=== PATIENT | male | born 1965 | race Caucasian/White ===

== ENCOUNTER → 2018-06-07 09:28 | Outpatient (CLI) | payer BC, SELFPAY ==
[2018-06-07 11:18] LABS: Cholesterol 162 mg/dL (200); High Density Lipoprotein 43 mg/dL; Triglycerides 75 mg/dL; Very Low Density Lipoprotein 15 mg/dL (5-40)
== END ==
PROVIDERS: Family Provider Family Medicine; PCP Family Medicine; Referring Provider Family Medicine; Visit Provider Family Medicine
DX: E78.5 Hyperlipidemia, unspecified (principal)
CPT/HCPCS: 36415; 80061

== ENCOUNTER → 2018-12-18 08:37 | Outpatient (CLI) | payer BC, SELFPAY ==
[2017-11-12 16:06] VITALS: BMI 41.7
--- NOTE | 2018-12-18 08:38 | RAD_ITS ---
STUDY: X-RAY - LEFT SHOULDER REASON FOR EXAM: Pain. TECHNIQUE: 4 view(s) of the shoulder. COMPARISON: None. FINDINGS: Normal glenohumeral articulation. There is mild acromioclavicular arthrosis. Normal acromion. Normal humeral head and visualized proximal humerus. The soft tissue structures are unremarkable. Normal visualized pulmonary apex. RAD/Shoulder min 2 Views IMPRESSION: Mild acromioclavicular arthrosis. Electronically Signed: Edison Butler MD at 10:37 EDT Tel , Service support ,
--- NOTE | 2018-12-18 09:57 | RAD_ITS ---
STUDY: X-RAY - LEFT CLAVICLE REASON FOR EXAM: Pain on the left, deformity. TECHNIQUE: A single view of the clavicle. COMPARISON: None. FINDINGS: The serendipity view demonstrates joint space narrowing of the left sternoclavicular joint in comparison to the the right. The medial clavicles are in the same horizontal plane and therefore no demonstrated dislocation of the sternoclavicular joints. There is no demonstrated fracture or osseous destruction of the left clavicle. RAD/Clavicle IMPRESSION: Arthrosis of the left sternoclavicular joint. Electronically Signed: Edison Butler MD at 9:50 EDT Tel , Service support ,
== END ==
PROVIDERS: Family Provider Family Medicine; PCP Family Medicine; Referring Provider Orthopaedic Surgery; Visit Provider Orthopaedic Surgery
DX: M25.512 Pain in left shoulder (principal)
CPT/HCPCS: 73000; 73030

== ENCOUNTER → 2019-02-14 09:44 | Outpatient (CLI) | payer BC, SELFPAY ==
[2017-11-12 16:06] VITALS: BMI 41.7
[2019-02-14 10:41] LABS: PSA,Total - Annual Screen 1.24 ng/mL (0.00-4.00)
[2019-02-16 09:20] LABS: Rubella IgG 174.5 IU/mL
[2019-02-17 12:26] LABS: V-Zoster IgG (Immunity) < 135 index (Immune >165)
== END ==
PROVIDERS: Family Provider Family Medicine; PCP Family Medicine; Referring Provider Family Medicine; Visit Provider Family Medicine
DX: Z00.00 Encounter for general adult medical examination without abnormal findings (principal); Z12.5 Encounter for screening for malignant neoplasm of prostate
CPT/HCPCS: 36415; 84153; 86762; 86765; 86787; G0103

== ENCOUNTER → 2019-03-07 10:07 | Outpatient (CLI) | payer BC, SELFPAY ==
[2019-02-27 13:09] VITALS: BMI 45.1
[2019-03-07 11:28] LABS: AST(SGOT) 10 U/L (15-37); Alanine Aminotransfer ALT/SGPT 25 U/L (16-61); Albumin, Serum 3.8 g/dL (3.2-5.0); Alkaline Phosphatase 71 U/L (45-117); Bilirubin, Direct 0.11 mg/dL (0.00-0.30); Cholesterol 153 mg/dL (200); Globulin 3.7 g/dL (2.2-4.2); High Density Lipoprotein 40 mg/dL; Protein, Total 7.5 g/dL (6.4-8.2); Triglycerides 89 mg/dL; Very Low Density Lipoprotein 18 mg/dL (5-40)
== END ==
PROVIDERS: Family Provider Family Medicine; PCP Family Medicine; Referring Provider Internal Medicine Cardiovascular Disease; Visit Provider Internal Medicine Cardiovascular Disease
DX: E78.5 Hyperlipidemia, unspecified (principal)
CPT/HCPCS: 36415; 80061; 80076

== ENCOUNTER → 2019-03-11 14:51 | Outpatient (CLI) | payer BC, SELFPAY ==
[2019-02-27 13:09] VITALS: BMI 45.1
--- NOTE | 2019-03-11 14:53 | ECHOD_ITS ---
Reason For Study: CAD/ASHD Procedure This was a 2D Doppler, Color Flow transthoracic echocardiogram. Exam performed in department. Left Ventricle Normal size and thickness. The estimated ejection fraction is 65 %. Stage 1 diastolic dysfunction. No regional wall motion abnormalities noted. Right Ventricle Normal size and thickness. Normal systolic function. Atria Normal left atrium. Normal right atrium. Normal atrial septum. Mitral Valve The mitral valve is structurally normal. No prolapse or stenosis seen. Trivial mitral valve insufficiency. Tricuspid Valve Normal tricuspid valve. Trivial tricuspid valve insufficiency. Right ventricular systolic pressure estimated to be 26 mmHg. Aortic Valve Normal aortic valve. Trisinus/trileaflet aortic valve. Pulmonic Valve Normal pulmonic valve. Great Vessels Normal aortic root. Normal arch. Normal inferior vena cava. Inferior vena cava collapse with sniff. Pericardium/Pleural No pericardial effusion. MMode/2D Measurements & Calculations LVIDd: 4.5 cm IVSd: 1.3 cm Ao root diam: 3.3 cm LVIDs: 2.9 cm LVPWd: 1.2 cm RVDd: 4.5 cm FS: 35.7 % LAV(MOD-bp): 56.8 ml LVAd ap4: 35.3 cm2 SV(MOD-sp4): 66.2 ml LAV(MOD-bp) Indexed: 21.8 ml/m2 EDV(MOD-sp4): 108.1 ml LAV(MOD-sp2): 51.4 ml EDV(sp4-el): 114.1 ml LAV(MOD-sp4): 55.9 ml LVAs ap4: 18.6 cm2 ESV(MOD-sp4): 41.9 ml ESV(sp4-el): 38.8 ml EF(MOD-sp4): 61.2 % EF(sp4-el): 66.0 % SV(sp4-el): 75.4 ml LA A4 area: 20.7 cm2 LA dimension(2D): 4.9 cm RA A4 area: 13.9 cm2 Doppler Measurements & Calculations MV E max rosalino: 57.7 cm/sec Lat Peak E' Rosalino: 15.4 cm/sec Med Peak E' Rosalino: 7.2 cm/sec MV A max rosalino: 69.2 cm/sec E/E' lat: 3.7 E/E' med: 8.1 MV E/A: 0.83 Ao V2 max: 146.9 cm/sec LV V1 max: 112.7 cm/sec PA V2 max: 91.3 cm/sec Ao max P.6 mmHg LV V1 max P.1 mmHg Ao V2 mean: 109.0 cm/sec Ao mean P.0 mmHg Ao V2 VTI: 28.0 cm TR max rosalino: 229.8 cm/sec TR max P.1 mmHg Interpretation Summary The estimated ejection fraction is 65 %. Stage 1 diastolic dysfunction. Trivial mitral valve insufficiency. Trivial tricuspid valve insufficiency. Right ventricular systolic pressure estimated to be 26 mmHg. Compared to echo report dated 06/01/2013, no appreciable changes noted. Ordering Physician: Yoshi Mednoza Referring Physician: Juan Carlos Nuno Performed By: Kaitlynn Barber RDCS, RVT
== END ==
PROVIDERS: Family Provider Family Medicine; PCP Family Medicine; Referring Provider Internal Medicine Cardiovascular Disease; Visit Provider Internal Medicine Cardiovascular Disease
DX: I25.10 Atherosclerotic heart disease of native coronary artery without angina pectoris (principal); I48.0 Paroxysmal atrial fibrillation; I11.9 Hypertensive heart disease without heart failure; I25.2 Old myocardial infarction
CPT/HCPCS: 93306

== ENCOUNTER → 2019-03-23 09:28 | Outpatient (CLI) | payer BC, SELFPAY ==
[2019-02-27 13:09] VITALS: BMI 45.1
--- NOTE | 2019-03-23 09:30 | STEWCON_ITS ---
Reason For Study: CAD/ASHD Stress Results Protocol: Jayy Protocol WITH DEFINITY Maximum Predicted HR: 169 bpm Target HR: 144 bpm % Maximum Predicted HR: 74 % DurationHeart Rate Stage (mm:ss) (bpm) BP Comment BASELINE 62 140/842 CC DEFINITY STAGE 1 3:00 91 140/82 STAGE 2 3:00 115 146/78INCREASED SOB AND LEG FATIGUE STAGE 3 1:00 125 / 2 CC DEFINITY, INREASED SOB RECOVERY 78 150/82 Stress Duration: 7:00 mm:ss Maximum Stress HR: 125 bpm Baseline Echocardiogram Findings The estimated ejection fraction is 65 %. Stress Echo Wall motion Data Resting WM Intermediate WM Stress WM Resting Wall Motion Wall Motion Stress No regional wall motion No regional wall motion abnormalities noted. abnormalities noted. EKG Data The baseline ECG displays normal sinus rhythm. The patient exercised according to the regular Jayy protocol for a total duration of 7:01. The maximum heart rate attained was 125 beats per minute. This was 73% of maximum predicted heart rate. The patient exercised into stage 3 of the Jayy protocol. During stress, there were no ST or T wave changes noted to suggest ischemia. No clinical angina was noted. No arrhythmias noted. Interpretation Summary The estimated ejection fraction is 65 %. Normal, adequate, Jayy treadmill echocardiogram. Negative for ischemia by EKG and echocardiographic criteria. No anginal symptoms noted. No arrhythmias noted. Below average exercise capacity for age. Test terminated due to dyspnea and leg discomfort. Decreased sensitivity due to poor echo windows requiring Definity agent. Pt had adequate rate pressure product. Final LVEF is 75%. No complications. The study was technically difficult. Contrast injection was performed. Ordering Physician: Yoshi Mendoza MD Referring Physician: Yoshi Mendoza Performed By: Kaitlynn Barbre, LOLIS, RVT
== END ==
PROVIDERS: Family Provider Family Medicine; PCP Family Medicine; Referring Provider Internal Medicine Cardiovascular Disease; Visit Provider Internal Medicine Cardiovascular Disease
DX: I48.0 Paroxysmal atrial fibrillation (principal); I25.10 Atherosclerotic heart disease of native coronary artery without angina pectoris; I25.2 Old myocardial infarction
CPT/HCPCS: 93017; 93350; Q9957; A4216; C8928

== ENCOUNTER 2019-08-24 11:45 | Day surgery (SDC) | payer BC, SELFPAY ==
[2019-02-27 13:09] VITALS: BMI 45.1
--- NOTE | 2019-08-23 13:16 | HP.PCM_ITS ---
History and Physical Date of Admission: 08/24/19 HISTORY AND PHYSICAL ? Aron Wise 1965 ? REFERRING PHYSICIAN: Juan Carlos Nuno, DO ? CHIEF COMPLAINT: Consult (Colonoscopy Consult) ? HPI: The patient is a 54 year old male referred for endoscopy. Aron notes some harder stools recently, has associated with frequent travel and stress. Patient denies any change in bowel habits, weight changes, blood in stools, black tarry stools or abdominal pain. Family history significant for mother with Crohn's disease ? The patient notes no upper GI complaints. ? Aron has not undergone prior endoscopy. ? Past medical history significant for obesity, sleep apnea, irregular heartbeat. Patient follows with Dr. Nuno for his chronic medical conditions and with Dr. Mendoza in cardiology. ? Denies problems with sedation in the past. ? ? PAST MEDICAL HISTORY PAST MEDICAL HISTORY Diagnosis Date ? Acid reflux ? ? ADD (attention deficit disorder) ? ? High cholesterol ? ? Irregular heart beat ? ? Sleep apnea ? ? ? PAST SURGICAL HISTORY PAST SURGICAL HISTORY Procedure Laterality Date ? EXTRACTION ERUPTED TOOTH/EXR ? 1998 ? HEART CATHETERIZATION ? 2017 ? ? ? CURRENT MEDICATIONS Current Outpatient Medications Medication Sig ? aspirin 81 mg chewable tablet Take 81 mg by mouth once daily. ? carvedilol (COREG) 6.25 mg tablet Take 6.25 mg by mouth twice daily. ? VYVANSE 50 mg capsule ? ? celecoxib (CELEBREX) 100 mg ORAL capsule Take 1 capsule by mouth twice daily. unsure who prescribes ? rosuvastatin calcium(CRESTOR 10 MG TAB) Take one(1) tablet at bedtime. ? eszopiclone(LUNESTA 2 MG TAB) Take one(1) tablet at bedtime as needed for insomnia. ? lansoprazole(PREVACID 30 MG CAP) Take one(1) capsule daily. as necessary ? albuterol HFA (PROVENTIL HFA, VENTOLIN HFA) 90 mcg/actuation inhaler Inhale 2 Puffs as instructed every 6 hours as needed for Wheezing/Shortness of Breath. ? No current facility-administered medications for this visit. ? ? ALLERGIES: Patient has no known allergies. ? PERSONAL HISTORY: SOCIAL HISTORY Social History ? Tobacco Use ? Smoking status: Former Smoker ? ? Packs/day: 1.00 ? ? Years: 8.00 ? ? Pack years: 8.00 ? ? Types: Cigarettes ? ? Last attempt to quit: 08/05/2004 ? ? Years since quittin.9 ? Smokeless tobacco: Never Used Substance Use Topics ? Alcohol use: No ? Drug use: No ? FAMILY HISTORY: FAMILY HISTORY FAMILY HISTORY Problem Relation Age of Onset ? Allergies Mother ? ? other (crohn) Mother ? ? Diabetes Maternal Grandmother ? ? ? REVIEW OF SYMPTOMS: The review of systems data was entered by the nurse and reviewed by me ? Nursing Notes: Jason Zaynab SHIELDS 07/22/2019 8:34 AM Signed REVIEW OF SYSTEMS: General: The patient notes fatigue, denies weight loss, denies weight gain, denies feeling hot, and denies feelings of cold. Eyes: The patient denies glaucoma, denies eye injury/surgery, does not wear glasses or contacts. Ear/Nose/Throat: The patient denies allergies, denies hayfever, denies ear infections, and denies bloody noses. Cardiovascular: The patient denies chest pain, denies heart disease, denies high blood pressure,denies cardiac stent, denies prior heart attack, NOTES irregular heart beat, NOTES high cholesterol, denies poor circulation, denies heart failure, other cardiac issues, denies claudication, denies cold feet, denies peripheral arterial stent. Respiratory: The patient denies tuberculosis, denies pneumonia, denies frequent cough, denies pulmonary embolism, denies shortness of breath, and denie s coughing up blood. Gastrointestinal: The patient denies difficulty swallowing, NOTES acid reflux, denies ulcers, denies vomiting, denies jaundice/hepatitis, denies gallbladder problems, denies black or tarry stools, denies hemorrhoids, denies bleeding from rectum, denies diverticulitis, denies constipation, denies diarrhea, denies loss of stool control, and denies hernias. Kidney/Bladder: The patient denies kidney stones, denies urine infections, and denies bloody urine. Skin: The patient denies a history of skin cancer, denies bleeding/changing moles, and denies a history of skin rash. Neurologic: The patient denies a history of epilepsy/convulsions, denies headaches, denies head/spinal injuries, and denies stroke/TIA. Psychiatric: The patient denies psychiatric medications, denies depression, and denies voices, denies substance abuse. Endocrine: The patient denies thyroid disorders, denies diabetes, and denies hormonal problems. Hematologic: The patient denies a history of bruising, denies bleeding, and denies anemia, denies blood clots. Infections: The patient denies a history of measles and mumps, denies rheumatic fever, and denies sexually transmitted diseases. Musculoskeletal: The patient denies back pain/injury, denies back problems, denies sciatica, denies knee/foot trouble, denies arthritis, or denies gout. ? ? When was patient's last Mammogram screening? N/A ? Last Colonoscopy: N/A ? Jason Worthy LPN I have confirmed and edited as necessary, the PFSH and ROS obtained by others. ? PHYSICAL EXAMINATION: ? General: The patient is 54 year old male, well nourished, well hydrated in no acute distress. The patient is oriented to time, place, and person. ? VITALS: Blood pressure 122/76, pulse 66, temperature 36.4 ?C (97.5 ?F), height 191.8 cm (6' 3.5), weight (!) 161.2 kg (355 lb 6.4 oz), SpO2 95 %. Body mass index is 43.84 kg/m?. ? HEENT: Normal cephalic, ataumatic, pupils are equally round, sclera are anicteric, mucous membranes are moist, oropharynx is clear. Neck has no masses, asymmetry or lymphadenopathy. ? Respiratory: Clear to auscultation and percussion. Normal respiratory excursio n and pattern. ? Cardiac: Examination is regular rate and rhythm. Normal S1/S2 ? Abdominal exam: Soft, nontender, with no palpable masses. No hepatosplenomegaly. No palpable hernias. ? Extremities: no clubbing, cyanosis or edema. No adenopathy. ? LABORATORY VALUES: As Noted ? RADIOLOGIC STUDIES: As Noted ? ? IMPRESSION: encounter for screening colonoscopy ? PLAN: I have reviewed my findings with the surgeon. Will plan for lower endoscopy. We discussed the risks and benefits of the planned endoscopy. I have informed the patient that complications can occur including failure to c omplete the endoscopy and perforation. The patient had the opportunity to ask questions concerning the planned endoscopy. My staff has also explained the procedure to the patient in understandable terms and has given the patient printed material concerning the procedure. The patient freely consents to surgery. ? I plan to use Golytely bowel preparation ? We will plan for Monitored Anesthetic Care. ? ? Diagnoses: (Z12.11) Encounter for screening for malignant neoplasm of colon (primary encounter diagnosis) (E66.01) Morbid obesity (HCC) (G47.33) Obstructive sleep apnea syndrome (Z86.79) History of irregular heartbeat ? ? Anaya Lopes PA-C
[2019-08-24 12:09] VITALS: BP 144/76; PULSE 65; RESP 16; TEMP 36.5; O2SAT 97; BMI 42.8
[2019-08-24] MEDS: Lactated Ringers 1,000 ML 100 ML IV (12:28)
[2019-08-24 14:26] VITALS: BP 144/76; BP 89/49; PULSE 60; RESP 16; TEMP 36.8; O2SAT 92
--- NOTE | 2019-08-24 14:26 | OP.COLON_ITS ---
Patient Name: Aron Wise Procedure Date: 08/24/2019 1:52 PM Date of : 1965 Age: 54 Procedure: Colonoscopy Indications: Screening for colorectal malignant neoplasm Providers: Danay Pablo MD Referring MD: Danay Pablo MD Medicines: See the Anesthesia note for documentation of the administered medications Patient Profile: Refer to note in patient chart for documentation of history and physical. Last Colonoscopy: none. The patient's first colonoscopy is today. Complications: No immediate complications. Procedure: Pre-Anesthesia Assessment: - see anesthesia note After I obtained informed consent, the scope was passed under direct vision. Throughout the procedure, the patient's blood pressure, pulse, and oxygen saturations were monitored continuously. The pediatric colonoscope was introduced through the anus and advanced to the cecum, identified by the appendiceal orifice, ileocecal valve and palpation. The colonoscopy was performed without difficulty. The patient tolerated the procedure well. The quality of the bowel preparation was poor, there was still retained fecal material. Therefore lavage and aspiration was done to clear the fecal material. This took some time. The valverde were cleared adequately. Scope In: 1:57:52 PM Scope Withdrawal Time 0 hours 17 minutes 6 seconds Scope Out: 2:22:06 PM Total Procedure Duration Time 0 hours 24 minutes 14 seconds Findings: The perianal and digital rectal examinations were normal. Pertinent negatives include normal sphincter tone. Non-bleeding internal hemorrhoids were found. Impression: - Non-bleeding internal hemorrhoids. - No specimens collected. Recommendation: - Repeat colonoscopy in 10 years for screening purposes. - Return to primary care physician PRN. - Continue present medications. Procedure Code(s): --- Professional --- G0121, Colorectal cancer screening; colonoscopy on individual not meeting criteria for high risk Diagnosis Code(s): --- Professional --- Z12.11, Encounter for screening for malignant neoplasm of colon K64.8, Other hemorrhoids CPT copyright 2017 [employer]. All rights reserved. The codes documented in this report are preliminary and upon boilermaker industrial boilers review may be revised to meet current compliance requirements. MD Danay Waterman MD 08/24/2019 2:26:21 PM This report has been signed electronically. Number of Addenda: 0 Note Initiated On: 08/24/2019 1:52 PM
--- NOTE | 2019-08-24 14:27 | OP.CCLET_ITS ---
08/24/2019 Juan Carlos Nuno [address] [place] [address] Re : Colonoscopy procedure for Aron Wise Dear Dr. Nuno This procedure was performed on Saturday, August 24, 2019. My impressions and recommendations are as follows: Impressions : - Non-bleeding internal hemorrhoids. - No specimens collected. Recommendations : - Repeat colonoscopy in 10 years for screening purposes. - Return to primary care physician PRN. - Continue present medications. My findings are described in the full procedure note, which is enclosed. If I can be of further assistance, please feel free to contact me at Doctor phone number(s): , Work: . Sincerely, MD Danay Waterman MD 08/24/2019 2:26:21 PM This report has been signed electronically.
[2019-08-24 14:30] VITALS: BP 131/58; BP 144/76; PULSE 58; RESP 16; O2SAT 97
[2019-08-24 14:35] VITALS: BP 112/60; BP 144/76; PULSE 57; RESP 16; O2SAT 97
[2019-08-24 14:41] VITALS: BP 130/66; BP 144/76; RESP 16; TEMP 36.2; O2SAT 96
[2019-08-24 14:57] VITALS: BP 144/76
== END 2019-08-24 15:05 | disposition home or self-care (01) ==
LOC: EN 11:46 → AC 11:48
PROVIDERS: Family Provider Family Medicine; Referring Provider Surgery; Visit Provider Surgery
PROC: 0DJD8ZZ Inspection of Lower Intestinal Tract, Via Natural or Artificial Opening Endoscopic (ICD-10-PCS; CPT 45378; principal; 2019-08-24 12:55)
DX: Z12.11 Encounter for screening for malignant neoplasm of colon (principal); K21.9 Gastro-esophageal reflux disease without esophagitis; K64.8 Other hemorrhoids; E78.00 Pure hypercholesterolemia, unspecified; G47.33 Obstructive sleep apnea (adult) (pediatric); F98.8 Other specified behavioral and emotional disorders with onset usually occurring in childhood and adolescence; E66.01 Morbid (severe) obesity due to excess calories; Z68.41 Body mass index [BMI] 40.0-44.9, adult; Z79.82 Long term (current) use of aspirin; Z79.899 Other long term (current) drug therapy; Z87.891 Personal history of nicotine dependence
CPT/HCPCS: 45378; J7120

== ENCOUNTER → 2020-01-04 09:15 | Outpatient (CLI) | payer BC, SELFPAY ==
[2019-12-17 13:55] VITALS: BMI 44.1
== END ==
PROVIDERS: Referring Provider Internal Medicine Cardiovascular Disease; Visit Provider Internal Medicine Cardiovascular Disease
DX: I48.0 Paroxysmal atrial fibrillation (principal); I25.10 Atherosclerotic heart disease of native coronary artery without angina pectoris; R00.2 Palpitations
CPT/HCPCS: 93225; 93226

== ENCOUNTER → 2020-10-01 09:31 | Outpatient (CLI) | payer BC, SELFPAY ==
[2019-12-17 13:55] VITALS: BMI 44.1
[2020-10-01 09:58] LABS: Hematocrit 44.5 % (40-54); Mean Corp Hgb Conc 31.5 g/dL (32-36); Mean Corpuscular Hgb 27.2 pg (27.0-32.0); Mean Corpuscular Volume 86.4 fL (80-94); Platelet Count 147 K/mm3 (150-450); RBC Distribution Width CV 13.7 % (11.6-14.6); RBC Distribution Width SD 44.4 fl (35.1-43.9); Red Blood Count 5.15 M/mm3 (4.6-6.2); White Blood Count 8.1 K/mm3 (4.4-11.0)
[2020-10-01 10:23] LABS: Albumin, Serum 3.7 g/dL (3.2-5.0); BUN 22 mg/dL (7-18); BUN/Creat Ratio 21.6 RATIO (10-20); Creatinine, Serum 1.02 mg/dL (0.70-1.30); EST Glomerular Filtration Rate 81 mL/min (>60); Est Glom Filt Rate - Afr Amer 98 mL/min (>60); Glucose 99 mg/dL (74-106); Protein, Total 7.4 g/dL (6.4-8.2)
[2020-10-01 10:24] LABS: AST(SGOT) 12 U/L (15-37); Alanine Aminotransfer ALT/SGPT 26 U/L (16-61); Alkaline Phosphatase 85 U/L (45-117); Anion Gap 5 (5-15); Chloride 108 mmol/L (98-107); Cholesterol 162 mg/dL (200); Globulin 3.7 g/dL (2.2-4.2); High Density Lipoprotein 48 mg/dL; PSA,Total - Annual Screen 1.83 ng/mL (0.00-4.00); Potassium 3.8 mmol/L (3.5-5.1); Sodium Level 141 mmol/L (136-145); Triglycerides 84 mg/dL; Very Low Density Lipoprotein 17 mg/dL (5-40)
[2020-10-01 11:35] LABS: Microalbumin,Random Urine 12.3 mg/L (NO RANGE EST.)
== END ==
PROVIDERS: PCP Student in an Organized Health Care Education/Training Program; Visit Provider Student in an Organized Health Care Education/Training Program
DX: I10 Essential (primary) hypertension (principal); R35.1 Nocturia
CPT/HCPCS: 36415; 80053; 80061; 82043; 84153; 85027; G0103

== ENCOUNTER 2020-10-20 14:45 | Outpatient (RCR) | payer BC, SELFPAY ==
[2020-10-07 15:23] VITALS: BMI 45.5
[2020-10-20] MEDS: COVID-19 VACC, MRNA(PFIZER)/PF 30 MCG/0.3 ML SYRINGE IM (08:29)
[2020-11-10] MEDS: COVID-19 VACC, MRNA(PFIZER)/PF 30 MCG/0.3 ML SYRINGE IM (08:24)
== END 2020-10-20 23:59 ==
LOC: IMMUN 14:45
PROVIDERS: PCP Student in an Organized Health Care Education/Training Program; Visit Provider Family Medicine
DX: Z23 Encounter for immunization (principal)
CPT/HCPCS: 0001A; 0002A; 91300

== ENCOUNTER → 2021-02-24 07:13 | Outpatient (CLI) | payer BC, SELFPAY ==
[2021-02-07 09:03] VITALS: BMI 46.2
--- NOTE | 2021-02-24 12:23 | STRESSREP_ITS ---
Stress Test Report Exercise mild. Perfusion stress test. 55-year-old man with a history of atrial fibrillation. Stress protocol: Rest EKG demonstrates sinus rhythm with a rate of 59 bpm normal intervals are noted resting blood pressure is 148/86 mmHg. The patient exercised according to regular Jayy protocol for total duration of 7 minutes and 30 seconds. Patient completed 1 minute and 30 seconds into stage III of the Jayy protocol. The maximum heart rate attained was 133 bpm which was 79% of max infected heart rate the maximum workload was 9.3 metabolic equivalents. At rest there were no ST or T wave changes noted to suggest ischemia at peak exercise upsloping ST changes only were noted. No clinical angina was noted. The peak blood pressure was 170/ 80 mmHg. No clinical angina was noted no arrhythmias were noted. Myocardial perfusion protocol. 15.0 mCi of technetium 99m sestamibi was injected at rest. The patient exercised according to regular Jayy protocol and at peak exercise 44.0 mCi of technetium 99m sestamibi was injected stress images were obtained stress and rest images were reconstructed and compared in the short axis vertical long horizontal long axis. Gated images were also obtained. Perfusion SPECT analysis: Review of the stress images demonstrate normal uptake of tracer noted in all areas of the myocardium. The resting images similarly demonstrate normal uptake of tracer noted in all areas of the myocardium. No areas of reversibility are noted suggest ischemia no previous infarct was noted. Gated SPECT analysis: The gated ejection fraction is 62%. Conclusion: Normal exercise myocardial perfusion stress test at a moderate workload. Preserved ejection fraction.
== END ==
PROVIDERS: Referring Provider Physician Assistant Medical; Visit Provider Physician Assistant Medical
DX: R07.9 Chest pain, unspecified (principal)
CPT/HCPCS: 78452; 93017; A9500; A4216

== ENCOUNTER → 2021-04-19 11:57 | Outpatient (CLI) | payer BC, SELFPAY | PROVIDERS: PCP Student in an Organized Health Care Education/Training Program; Referring Provider Family Medicine; Visit Provider Family Medicine | DX: Z03.818 Encounter for observation for suspected exposure to other biological agents ruled out (principal); J02.9 Acute pharyngitis, unspecified | CPT/HCPCS: 87635; C9803; U0005; U0003 ==

== ENCOUNTER → 2021-12-20 | Outpatient (CLI) | payer BC, SELFPAY ==
[2021-12-20 12:25] LABS: Hematocrit 44.6 % (40-54); Hemoglobin 14.5 g/dL (13.0-16.5); Mean Corp Hgb Conc 32.5 g/dL (32-36); Mean Corpuscular Hgb 27.7 pg (27.0-32.0); Mean Corpuscular Volume 85.3 fL (80-94); Mean Platelet Vol. 10.7 fl (6.2-12.0); Platelet Count 161 K/mm3 (150-450); RBC Distribution Width CV 13.8 % (11.6-14.6); RBC Distribution Width SD 42.6 fl (35.1-43.9); Red Blood Count 5.23 M/mm3 (4.6-6.2); White Blood Count 8.3 K/mm3 (4.4-11.0)
[2021-12-20 13:07] LABS: ALB/GLOB Ratio 1.1 RATIO (0.9-2.4); AST(SGOT) 14 U/L (15-37); Alanine Aminotransfer ALT/SGPT 23 U/L (16-61); Albumin, Serum 4.1 g/dL (3.2-5.0); Alkaline Phosphatase 68 U/L (45-117); Anion Gap 3 (5-15); BUN 18 mg/dL (7-18); Calcium,Total 9.3 mg/dL (8.5-10.1); Chloride 105 mmol/L (98-107); Cholesterol 165 mg/dL (200); EST Glomerular Filtration Rate 93 mL/min (>60); Est Glom Filt Rate - Afr Amer 113 mL/min (>60); Globulin 3.9 g/dL (2.2-4.2); Glucose 86 mg/dL (74-106); High Density Lipoprotein 50 mg/dL; Potassium 4.1 mmol/L (3.5-5.1); Sodium Level 138 mmol/L (136-145); Triglycerides 77 mg/dL; Very Low Density Lipoprotein 15 mg/dL (5-40)
[2021-12-21 17:22] LABS: V-Zoster IgG (Immunity) 835 index (Immune >165)
== END | disposition home or self-care (01) ==
PROVIDERS: PCP Student in an Organized Health Care Education/Training Program; Referring Provider Internal Medicine Cardiovascular Disease; Visit Provider Internal Medicine Cardiovascular Disease
DX: Z01.84 Encounter for antibody response examination (principal); E66.01 Morbid (severe) obesity due to excess calories; I10 Essential (primary) hypertension; Z12.5 Encounter for screening for malignant neoplasm of prostate; E78.00 Pure hypercholesterolemia, unspecified; F41.9 Anxiety disorder, unspecified; F90.9 Attention-deficit hyperactivity disorder, unspecified type
CPT/HCPCS: 36415; 80048; 80053; 80061; 80076; 82043; 82248; 82570; 84153; 85027; 86787; G0103

== ENCOUNTER 2021-12-25 15:10 | Outpatient (RCR) | payer BC, SELFPAY ==
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
--- NOTE | 2022-06-06 09:52 | HP.PT.NRP ---
CHRISTINA BHATT was seen in my office for initial evaluation on 12/25/21. The following Plan of Care was established for this patient: Initial Frequency: 2x /Week Initial Duration: 6 Weeks Patient/Client Instruction: Educate patient on: Benefits of Fitness Program Therapeutic Exercise to Include: Strength training, Endurance training, Balance training, Coordination, Agility training, Body mechanics, Postural training, Flexibilty training, Gait and locomotor training, Neuromotor development, Dynamic Lumbar Stabilization, Scapular Strength/Stabilization For the Purpose of:: To improve muscle performance and motor function TENS: Yes Cryotherapy (ice pack, ice massage): Yes Thermo therapy (hot pack): Yes Ultrasound (thermal/non thermal): Yes This patient was last seen in our office . Pertinent comments regarding their Physical therapy will appear below: Patient has not attended PT in over 30 days appropriate for d/c and return to MD for further evaluation PRN At this point I will be discontinuing this patient from physical therapy. I would be happy to see this patient again in the future if found appropriate by the physician. Thank you! Louise Garrett DPT Balance/Gait/Functional tests - Balance/Special Test Scores Lower Extremity Functional Score: 39
== END 2021-12-25 19:00 | disposition home or self-care (01) ==
LOC: PT 15:10
PROVIDERS: PCP Student in an Organized Health Care Education/Training Program
DX: M94.262 Chondromalacia, left knee (principal)
CPT/HCPCS: 97110; 97162

== ENCOUNTER → 2022-02-14 | Outpatient (CLI) | payer BC, SELFPAY ==
--- NOTE | 2022-02-14 12:58 | VDLE_ITS ---
Reason For Study: DVT RIGHT LEFT GSV is normal. GSV is normal. CFV is compressible, spontaneous, phasic, CFV is compressible, spontaneous, phasic, competent and demonstrates normal competent, and demonstrates normal augmentation. augmentation. FV is compressible, spontaneous, phasic, FV is compressible, spontaneous, phasic, competent and demonstrates normal competent and demonstrates normal augmentation. augmentation. POP V is compressible, spontaneous, phasic, POP V is compressible, spontaneous, phasic, competent and demonstrates normal competent and demonstrates normal augmentation. augmentation. T/P Trunk is compressible. T/P Trunk is compressible. PTV is compressible. PTV is compressible. RT PerV is compressible. LT PerV is compressible. Hypoechoic, non vascular structure noted Rt Pop Fossa measuring 3.75cm x 0.94cm. Procedure This is a venous duplex using B-mode, color flow and spectral Doppler. Exam performed in department. A preliminary report was called and/or faxed to Dr. Becerra. VL/Venous Duplex US - Lico Extrem Interpretation Summary No evidence for acute deep venous thrombosis bilateral lower extremities with p atent and compressible bilateral great saphenous veins. Hypoechoic nonvascular right popl iteal structure measuring 3.75 x 0.94 cm consistent with a Rose cyst. Clinical correlation wou ld be appropriate. Ordering Physician: Bala Becerra Referring Physician: Bala Becerra Performed By: Kaitlynn Barber, LOLIS, RVT
== END | disposition home or self-care (01) ==
PROVIDERS: PCP Student in an Organized Health Care Education/Training Program; Visit Provider Student in an Organized Health Care Education/Training Program
DX: M79.669 Pain in unspecified lower leg (principal)
CPT/HCPCS: 93970

== ENCOUNTER 2022-02-18 09:58 | Observation (INO) | payer BC, SELFPAY ==
[2022-02-18] VITALS (11 sets, daily range): BP systolic 133–166; BP diastolic 52–126; PULSE 63–97; RESP 14–18; TEMP 36.2–37.3; O2SAT 92–99; BMI 42.5
--- NOTE | 2022-02-18 | APP_PTH ---
PATIENT: CHRISTINA BHATT LOC: MS3 U#:[id number] AGE/SX: 56/M ROOM: KS310 RE02/18/[address]: Dr. Martina Ha MD : 1965 BED: 1 DIS: 02/18/2022 SPEC #: [id number] RECD: 02/19/22 07:04 STATUS: REGLA RELeyla #: [id number] HENNA: 02/18/22 00:[address]: Martina Ha DEPT: SURGICAL PATHOLOGY RECD BY: Adan Ziegler ENTERED: 02/19/22 08:44 SP TYPE: APPENDIX OTHR DR: Dr. Bala Becerra, DO Tissues: Appendix, NOS Procedures: Surgery Specimen Level III HEADER OPERATION: Laparoscopic appendectomy PRE-OP DIAGNOSIS: Acute appendicitis TISSUE SUBMITTED: Appendix MICROSCOPIC DIAGNOSIS Appendix, appendectomy: Acute necrotizing appendicitis. Acute serositis. AM:emmett 02/20/2022 MICROSCOPIC DESCRIPTION Slides are reviewed. GROSS DESCRIPTION Received in fixative is one container labeled with the patient's name and designated appendix. The specimen consists of a vermiform appendix measuring 7 cm in length and 1 cm in average diameter. No gross perforations are evident. Serial sections reveal a patent lumen. Language Pathologist sections are submitted in two cassettes. / AM:emmett 02/19/2022 TC:2 CPT: 20168
[2022-02-18 10:48] LABS: Absolute Lymphocyte Count 0.97 X10^3/uL (0.83-4.51); Absolute Neutrophil Count 9.2 X10^3/uL (2.0-7.7); Basophil# 0.05 X10^3/uL; Basophil% 0.4 % (0-1); Eosinophils% 0.9 % (0-5); Hematocrit 42.7 % (40-54); Hemoglobin 13.6 g/dL (13.0-16.5); Lymphocyte # 0.97 X10^3/ul (0.83-4.51); Lymphocyte % 8.7 % (19-41); Mean Corp Hgb Conc 31.9 g/dL (32-36); Mean Corpuscular Hgb 27.7 pg (27.0-32.0); Mean Platelet Vol. 10.6 fl (6.2-12.0); Monocyte% 7.1 % (0-10); NRBC Flagged by Analyzer 0 % (0-5); Neutrophil # 9.23 X10^3/uL (2.7-7.7); Neutrophil % 82.5 % (47-70); Platelet Count 118 K/mm3 (150-450); RBC Distribution Width CV 14.2 % (11.6-14.6); RBC Distribution Width SD 45.2 fl (35.1-43.9); Red Blood Count 4.91 M/mm3 (4.6-6.2); White Blood Count 11.2 K/mm3 (4.4-11.0)
--- NOTE | 2022-02-18 10:48 | EDS_ITS ---
HPI HPI - GI History of Present Illness Chief Complaint: Abd Pain Informant: patient Abdominal Pain/Flank Pain Onset: Today and Yesterday Context: Gradual Onset Timing: Continuous Quality: Aching and Cramping Location: Diffuse Current Severity: Moderate Maximum Severity: Moderate Worsened by: Nothing Relieved by: Nothing Nausea/Vomiting/Emesis GI Symptom: Positive for Nausea and Vomiting Onset: Yesterday Severity: Mild Diarrhea/Melena/Hematochezia GI Symptom: Negative for Diarrhea, Melena or Hematochezia Associated Symptoms Associated Symptoms: Negative for Dysuria, Frequency, Hematuria or Urgency Narrative Narrative: 56-year-old male past medical history of coronary artery disease, hypertension high cholesterol and A. fib. Recently had a trip to the [facility] but is now been back a week. Yesterday evening started having diffuse crampy abdominal pain which is worse today. Yesterday had 1 episode of nausea and vomiting. None today. No fever. No dysuria. No diarrhea or constipation. Has never had discomfort like this before. He is never had any abdominal surgery. No one else at home is ill. Prior similar symptoms: No Recent Illness/Hospitalization: No PFSH PFSH Medical History Chest discomfort Essential hypertension History of non-ST elevation myocardial infarction (NSTEMI) (06/17/17) HLD (hyperlipidemia) Knee pain Nonobstructive atherosclerosis of coronary artery Obesity Obstructive sleep apnea Paroxysmal atrial fibrillation Home Medications celecoxib 200 mg capsule 200 mg PO DAILY PRN Pain Or Fever 08/21/19 [History Last Taken Unknown] eszopiclone 2 mg tablet 2 mg PO QHS PRN PRN Sleep 08/21/19 [History Last Taken Unknown] lisdexamfetamine 40 mg capsule 40 mg PO DAILY 02/07/21 [History Last Taken Unknown] nitroglycerin 0.4 mg sublingual tablet 0.4 mg sublingual Q5M PRN chest pain #25 tabs 03/20/21 [Rx Last Taken Unknown] carvedilol 6.25 mg tablet (Coreg) 6.25 mg PO BID #180 tabs 12/20/21 [Rx Last Taken Unknown] escitalopram oxalate 10 mg tablet 10 mg PO DAILY #90 tabs 12/20/21 [Rx Last Taken Unknown] rosuvastatin 10 mg tablet 10 mg PO QHS cholesterol #90 tabs 12/20/21 [Rx Last Taken Unknown] sildenafil 50 mg tablet 50 mg PO DAILY PRN sexual activity #30 tabs 12/20/21 [Rx Last Taken Unknown] aspirin 81 mg tablet,delayed release 81 mg PO DAILY@0800 #30 tabs 01/16/22 [Rx Last Taken Unknown] meclizine 25 mg tablet 25 mg PO TID PRN dizziness or vertigo #6 tabs 02/02/22 [Rx Last Taken Unknown] Allergy/AdvReac Type Severity Reaction Status Date / Time No Known Allergies Allergy Verified 02/18/22 10:00 Family History Mother Crohn disease Grandmother Diabetes Surgical History History of left heart catheterization (06/17/17) Social History Smoking Status: Unknown if ever smoked how long ago did patient quit smokin alcohol intake: never substance use type: does not use caffeine: Yes Type: coffee what type of physical activity do you participate in: none seatbelt use: always do you feel safe at home: Yes ROS ROS ED ROS Narrative Abdominal pain with 1 episode of nausea and vomiting. Review of Systems ROS Unobtainable: Denies due to encephalopathy Constitutional Constitutional ED: Denies chills or fever(s) ENT ENT ED: Denies ear pain Cardiovascular Cardiovascular: Denies chest pain Respiratory/Chest Respiratory/Chest: Denies cough Gastrointestinal Gastrointestinal: Reports abdominal pain, nausea and vomiting; Denies constipation, diarrhea or melena Genitourinary Genitourinary ED: Denies dysuria Musculoskeletal Musculoskeletal: Denies arthralgias Integumentary Denies abscess Neurologic Neurologic: Denies headache(s) Psychiatric Psychiatric: Denies anxiety Endocrine Endocrinology: Denies polydipsia Hematologic/Lymphatic Hematologic/Lymphatic: Denies easy bleeding Allergic/Immunologic Allergic/Immunologic ED: Denies mouth swelling EXAM Physical Exam Narrative Exam Narrative: 56-year-old male no acute distress. Vital signs stable afebrile. H EENT exam unremarkable. Moist remembers. Neck nontender. Lungs are clear. Heart regular rhythm no murmur. Abdomen obese but soft tender diffusely and also on the right lower quadrant. No peritoneal signs. No hernia or mass. No obstruction. Right upper quadrant unremarkable. No pulsatile mass. Moving all 4 extremities. Nontender no edema. Neurologically is awake and alert with no focal motor deficits. Const Vital Signs: 02/18/22 09:59 02/18/22 12:04 02/18/22 12:05 Temperature 97.2 F L 97.9 F Temperature Source Temporal Oral Pulse Rate 65 63 Respiratory Rate 14 18 Blood Pressure 152/91 H 153/70 H Blood Pressure Mean 111 97 Blood Pressure Source Monitor Blood Pressure Position Semi-Fowlers Blood Pressure Location Right Arm Pulse Ox 99 98 98 Oxygen Delivery Method Room Air Room Air Positive well nourished, well developed and obese; Negative for cachectic, contractures or unkempt General Appearance ED: well developed; Negative for unkempt, cachectic, contractures or pallor Nutritional Appearance: obese; Negative for cachectic HEENT Reports moist mucous membranes; Denies dry mucous membranes normocephalic and atraumatic; Negative for trauma Mouth ED: No dry mucous membranes Mouth: No dry mucous membranes Eyes PERRL and EOMs intact bilaterally General Eye ED: Negative for pale conjunctiva or scleral icterus Neck no lymphadenopathy, supple and no JVD General: Negative for tenderness Lymph Lymphatic: Negative for other Resp normal respiratory effort and clear to auscultation bilaterally Effort and Inspection: Negative for respiratory distress Auscultation: Negative for rales, rhonchi or wheezes Cardio regular rate, regular rhythm, S1 normal heart sound, S2 normal heart sound and no murmurs Rate: Negative for bradycardia Rhythm: Negative for abnormal rhythm GI non-tender, non-distended and no masses Inspection: Negative for abdominal distention Auscultation: normoactive bowel sounds Palpation: soft; Negative for tender, guarding or rigid Back/Spine no CVA tenderness General Back: Negative for CVA tenderness Extremity full ROM General Extremety ED: Negative for edema or tenderness General Extremity: Negative for edema Neuro moves all extremities Sensorium / Orientation: alert, oriented to person, oriented to place and oriented to time; Negative for orientation impaired, confused, lethargic or stuporous Motor Exam: strength 5/5 throughout Psych mental status grossly normal Appearance: Negative for unkempt Attitude: No agitated Mood & Affect: Negative for depressed or anxious Skin no wounds General Skin Exam: Negative for jaundice or pallor Lesions: no lesions Rashes: no rashes MDM MDM MDM Narrative Medical decision making narrative: 56-year-old male with no prior abdominal surgeries started on abdominal pain last night worse today. CAT scan labs are pending. He requested some for pain to be treated with 8 of morphine IV and Zofran IV. Repeat exam patient is doing well. He does have reproducible right lower quadrant pain and referred pain to his right lower quadrant and reflux in the left side of his abdomen. I went over all the test results of both he and his . General surgery is on page. Patient be started on IV Zosyn. Lab Data Attestation: I reviewed the patient's lab results. Lab results narrative: CBC shows a white count 11.2. H&H 13 and 42. Platelets 118. Electrolytes gap of 5 BUN and creatinine normal. Glucose 109. Liver enzymes are normal. Lipase is normal at 97. Urinalysis is negative. CAT scans consistent with acute appendicitis per the radiologist. Labs: Laboratory Results - last 24 hr 02/18/22 02/18/22 02/18/22 10:16 10:16 10:16 WBC 11.2 H RBC 4.91 Hgb 13.6 Hct 42.7 MCV 87.0 MCH 27.7 MCHC 31.9 L RDW Std Deviation 45.2 H RDW Coeff of Bruce 14.2 Plt Count 118 L MPV 10.6 Immature Gran % (Auto) 0.400 Neut % (Auto) 82.5 H Lymph % (Auto) 8.7 L [place] % (Auto) 7.1 Eos % (Auto) 0.9 Baso % (Auto) 0.4 Absolute Neuts (auto) 9.2 H Absolute Lymphs (auto) 0.97 Nucleated RBC % 0 Sodium 140 Potassium 3.7 Chloride 108 H Carbon Dioxide 27.0 Anion Gap 5 BUN 15 Creatinine 0.84 Estim Creat Clear Calc 120.16 Est GFR (MDRD) Af Amer 122 Est GFR (MDRD) Non-Af 101 BUN/Creatinine Ratio 17.8 Glucose 109 H Calcium 9.1 Total Bilirubin 0.80 Direct Bilirubin 0.17 AST 13 L ALT 24 Alkaline Phosphatase 69 Total Protein 7.1 Albumin 3.5 Globulin 3.6 Lipase 97 Urine Color Urine Clarity Urine pH Ur Specific [place] Urine Protein Urine Glucose (UA) Urine Ketones Urine Occult Blood Urine Nitrite Urine Bilirubin Urine Urobilinogen Ur Leukocyte Esterase Urine RBC Urine WBC Ur Squamous Epith Cells Urine Bacteria Urine Mucus 02/18/22 11:07 WBC RBC Hgb Hct MCV MCH MCHC RDW Std Deviation RDW Coeff of Bruce Plt Count MPV Immature Gran % (Auto) Neut % (Auto) Lymph % (Auto) [place] % (Auto) Eos % (Auto) Baso % (Auto) Absolute Neuts (auto) Absolute Lymphs (auto) Nucleated RBC % Sodium Potassium Chloride Carbon Dioxide Anion Gap BUN Creatinine Estim Creat Clear Calc Est GFR (MDRD) Af Amer Est GFR (MDRD) Non-Af BUN/Creatinine Ratio Glucose Calcium Total Bilirubin Direct Bilirubin AST ALT Alkaline Phosphatase Total Protein Albumin Globulin Lipase Urine Color Yellow Urine Clarity Clear Urine pH 7.0 Ur Specific [place] 1.010 Urine Protein Negative Urine Glucose (UA) Normal Urine Ketones Negative Urine Occult Blood Negative Urine Nitrite Negative Urine Bilirubin Negative Urine Urobilinogen Normal Ur Leukocyte Esterase Negative Urine RBC 0 SEEN Urine WBC 0 SEEN Ur Squamous Epith Cells 0 SEEN Urine Bacteria 0 SEEN Urine Mucus 0 SEEN Radiography Diagnostic Testing: Clinical Impression(s) from Imaging Studies Abdomen/Pelvis CT 02/18/22 10:48 IMPRESSION: 1. Acute appendicitis. No periappendiceal abscess or perforation. 2. Sigmoid diverticulosis without acute diverticulitis. 3. Atherosclerotic vascular calcifications. Heart size normal. No abdominal aortic aneurysm. 4. Enlarged prostate gland, its central lobe indenting the floor the urinary bladder. 5. Multilevel degenerative changes of the thoracolumbar spine. N.B. : The above Results were Read Back by Chance Schneider MD to Rodrigo Moore MD, and understanding confirmed on 02/18/2022 11:39:34 (ET). Electronically Signed: Chance Schneider MD at 11:41 EDT , ADDENDUM: 02/18/22 1148 IMPRESSION: 1. Acute appendicitis. No periappendiceal abscess or perforation. 2. Sigmoid diverticulosis without acute diverticulitis. 3. Atherosclerotic vascular calcifications. Heart size normal. No abdominal aortic aneurysm. 4. Enlarged prostate gland, its central lobe indenting the floor the urinary bladder. 5. Multilevel degenerative changes of the thoracolumbar spine. N.B. : The above Results were Read Back by Chance Schneider MD to Rodrigo Moore MD, and understanding confirmed on 02/18/2022 11:39:34 (ET). Electronically Signed: Chance Schneider MD at 11:41 EDT , Rhythm Strip Rhythm Strip: Sinus Rhythm Rate: 66 Ectopy: None EKG Initial EKG: Attestation: I personally reviewed and interpreted this EKG as follows: Interpretation: Sinus Rhythm and No Acute Injury Pattern Comments: Preop EKG was performed. Normal sinus rhythm. Rate of 66. No acute signs of [place], ischemia or dysrhythmia. Discharge Plan Dx/Rx/DC Orders Clinical Impression: Acute appendicitis, History of hypertension Disposition Disposition: Acute Care Hospital [facility]
--- NOTE | 2022-02-18 10:48 | CT_ITS ---
STUDY: CT ABDOMEN AND PELVIS WITH CONTRAST REASON FOR EXAM: Male, 56 years old. RLQ PAIN RADIATION DOSAGE (If Supplied By Facility): CTDIvol = ( 21.93 ) mGy, DLP = ( 1869.22 ) mGycm TECHNIQUE: Transaxial images were obtained from the dome of the diaphragm to the symphysis pubis without oral contrast. IV 100mL Isovue-300 was administered. Sagittal and coronal images were reconstructed. Individualized dose optimization techniques were used for this CT. COMPARISON: None. FINDINGS: The visualized lung bases are unremarkable. Normal heart size. There is atherosclerotic calcification of the right coronary artery. Subtle decreased density in the anteromedial periphery of segment 4 liver consistent with focal fatty infiltration. The patent portal vein diameter is 1.65 cm. Normal gallbladder and extrahepatic biliary system. The diameter of the common bile duct reaches 7.5 mm. Normal spleen. Normal pancreas. Normal bilateral adrenal glands. Normal right kidney. 2-3 mm nonobstructing stone seen at the mid pole of the left kidney. No hydronephrosis. Normal visualized stomach. Normal small intestine. There are multiple sigmoid colon diverticula consistent with diverticulosis. The appendix is distended to 12 mm, and there is ill-defined stranding in the periappendiceal tissues, consistent with acute appendicitis. There is mild atherosclerotic calcification of the abdominal aorta and proximal iliac arteries, without a demonstrated aneurysm. Normal inferior vena cava. Normal retroperitoneum. Normal urinary bladder. There is enlargement of the prostate gland, measuring 5 x 3.9 x 5.25 cm (R 53.5 cc), the central lobe indenting the floor of the urinary bladder. Normal abdominal wall. There are diffuse degenerative changes of the visualized thoracolumbar spine. CT/Abdomen/Pelvis W IV Cont ONLY IMPRESSION: 1. Acute appendicitis. No periappendiceal abscess or perforation. 2. Sigmoid diverticulosis without acute diverticulitis. 3. Atherosclerotic vascular calcifications. Heart size normal. No abdominal aortic aneurysm. 4. Enlarged prostate gland, its central lobe indenting the floor the urinary bladder. 5. Multilevel degenerative changes of the thoracolumbar spine. N.B. : The above Results were Read Back by Chance Schneider MD to Rodrigo Moore MD, and understanding confirmed on 02/18/2022 11:39:34 (ET). Electronically Signed: Chance Schneider MD at 11:41 EDT ,
[2022-02-18 11:00] LABS: Anion Gap 5 (5-15); BUN 15 mg/dL (7-18); BUN/Creat Ratio 17.8 RATIO (10-20); Calcium,Total 9.1 mg/dL (8.5-10.1); Chloride 108 mmol/L (98-107); Creatinine, Serum 0.84 mg/dL (0.70-1.30); EST Glomerular Filtration Rate 101 mL/min (>60); Est Glom Filt Rate - Afr Amer 122 mL/min (>60); Estimated Creatinine Clearance 120.16 ml/min; Glucose 109 mg/dL (74-106); Potassium 3.7 mmol/L (3.5-5.1); Sodium Level 140 mmol/L (136-145)
[2022-02-18] MEDS: 0.9% Normal Saline 1,000 ML 1000 ML IV (11:04)
[2022-02-18] MEDS: morphine 8 MG/ML Syringe IV (11:04)
[2022-02-18] MEDS: Ondansetron 4 MG/2 ML Vial IV (11:04)
[2022-02-18 11:11] LABS: AST(SGOT) 13 U/L (15-37); Alanine Aminotransfer ALT/SGPT 24 U/L (16-61); Albumin, Serum 3.5 g/dL (3.2-5.0); Alkaline Phosphatase 69 U/L (45-117); Bilirubin, Direct 0.17 mg/dL (0.00-0.30); Globulin 3.6 g/dL (2.2-4.2); Lipase 97 U/L (73-393); Protein, Total 7.1 g/dL (6.4-8.2)
[2022-02-18 11:14] LABS: Bacteria 0 SEEN /hpf (None Seen); Mucous, Urine 0 SEEN /hpf (<or=2+); Red Blood Cells-Urine 0 SEEN /hpf (0-5); Squamous Epithelial Cells - UA 0 SEEN /hpf (0-5); White Blood Cells 0 SEEN /hpf (0-5)
[2022-02-18 11:16] LABS: Color, Urine Yellow (Yellow); Glucose, Dipstick Normal (Normal); Ketone-Dipstick Negative (Negative); Leukocyte Esterase-Dipstick Negative /ul (Negative); Nitrite-Dipstick Negative (Negative); Occult Blood-Urine Negative /ul (Negative); Protein-Dipstick Negative (Negative); Urine Bilirubin Dipstick Negative (Negative); Urine Clarity Clear (Clear); Urine Urobilinogen Normal (Normal)
--- NOTE | 2022-02-18 12:11 | PCM.HP.STD ---
HPI - General HPI Narrative CHRISTINA BHATT, is a 56 M who presents to the ER due to abdominal pain started yesterday about 5 PM moved to the right lower quadrant this morning. Patient has CT abdomen pelvis consistent with acute appendicitis, white blood cell count 11.2. Patient's never had previous abdominal surgery. Patient did have some nausea and vomiting yesterday. Patient has had a colonoscopy in the last couple years which was normal per patient. [facility] Medical History Chest discomfort Essential hypertension History of non-ST elevation myocardial infarction (NSTEMI) (06/17/17) HLD (hyperlipidemia) Knee pain Nonobstructive atherosclerosis of coronary artery Obesity Obstructive sleep apnea Paroxysmal atrial fibrillation Home Medications celecoxib 200 mg capsule 200 mg PO DAILY PRN Pain Or Fever 08/21/19 [History Last Taken Unknown] eszopiclone 2 mg tablet 2 mg PO QHS PRN PRN Sleep 08/21/19 [History Last Taken Unknown] lisdexamfetamine 40 mg capsule 40 mg PO DAILY 02/07/21 [History Last Taken Unknown] nitroglycerin 0.4 mg sublingual tablet 0.4 mg sublingual Q5M PRN chest pain #25 tabs 03/20/21 [Rx Last Taken Unknown] carvedilol 6.25 mg tablet (Coreg) 6.25 mg PO BID #180 tabs 12/20/21 [Rx Last Taken Unknown] escitalopram oxalate 10 mg tablet 10 mg PO DAILY #90 tabs 12/20/21 [Rx Last Taken Unknown] rosuvastatin 10 mg tablet 10 mg PO QHS cholesterol #90 tabs 12/20/21 [Rx Last Taken Unknown] sildenafil 50 mg tablet 50 mg PO DAILY PRN sexual activity #30 tabs 12/20/21 [Rx Last Taken Unknown] aspirin 81 mg tablet,delayed release 81 mg PO DAILY@0800 #30 tabs 01/16/22 [Rx Last Taken Unknown] meclizine 25 mg tablet 25 mg PO TID PRN dizziness or vertigo #6 tabs 02/02/22 [Rx Last Taken Unknown] Allergy/AdvReac Type Severity Reaction Status Date / Time No Known Allergies Allergy Verified 02/18/22 10:00 Family History Mother Crohn disease Grandmother Diabetes Surgical History History of left heart catheterization (06/17/17) Social History Smoking Status: Unknown if ever smoked how long ago did patient quit smokin alcohol intake: never substance use type: does not use caffeine: Yes Type: coffee what type of physical activity do you participate in: none seatbelt use: always do you feel safe at home: Yes Vital Signs Vital Signs Vital Signs: 02/18/22 09:59 02/18/22 12:04 02/18/22 12:05 Temperature 97.2 F L 97.9 F Temperature Source Temporal Oral Pulse Rate 65 63 Respiratory Rate 14 18 Blood Pressure 152/91 H 153/70 H Blood Pressure Mean 111 97 Blood Pressure Source Monitor Blood Pressure Position Semi-Fowlers Blood Pressure Location Right Arm Pulse Ox 99 98 98 Oxygen Delivery Method Room Air Room Air Weight Weight: 340 lb Body Mass Index (BMI) 42.5 Physical Exam Const alert, oriented x3 and no apparent distress HEENT normocephalic and head/scalp atraumatic Resp normal respiratory effort Cardio regular rate GI soft to palpation; Negative for non-distended Palpation: tender RLQ; Negative for guarding Extremity no clubbing, cyanosis or edema Neuro CN's II-XII intact bilaterally Psych mental status grossly normal Results Lab / Micro Data Result Diagrams: 02/18/22 10:16 02/18/22 10:16 Labs: Laboratory Results - last 24 hr 02/18/22 10:16: WBC 11.2 H, RBC 4.91, Hgb 13.6, Hct 42.7, MCV 87.0, MCH 27.7, MCHC 31.9 L, RDW Std Deviation 45.2 H, RDW Coeff of Bruce 14.2, Plt Count 118 L, MPV 10.6, Immature Gran % (Auto) 0.400, Neut % (Auto) 82.5 H, Lymph % (Auto) 8.7 L, [place] % (Auto) 7.1, Eos % (Auto) 0.9, Baso % (Auto) 0.4, Absolute Neuts (auto) 9.2 H, Absolute Lymphs (auto) 0.97, Nucleated RBC % 0 02/18/22 10:16: Sodium 140, Potassium 3.7, Chloride 108 H, Carbon Dioxide 27.0, Anion Gap 5, BUN 15, Creatinine 0.84, Estim Creat Clear Calc 120.16, Est GFR (MDRD) Af Amer 122, Est GFR (MDRD) Non-Af 101, BUN/Creatinine Ratio 17.8, Glucose 109 H, Calcium 9.1 02/18/22 10:16: Total Bilirubin 0.80, Direct Bilirubin 0.17, AST 13 L, ALT 24, Alkaline Phosphatase 69, Total Protein 7.1, Albumin 3.5, Globulin 3.6, Lipase 97 02/18/22 11:07: Urine Color Yellow, Urine Clarity Clear, Urine pH 7.0, Ur Specific [place] 1.010, Urine Protein Negative, Urine Glucose (UA) Normal, Urine Ketones Negative, Urine Occult Blood Negative, Urine Nitrite Negative, Urine Bilirubin Negative, Urine Urobilinogen Normal, Ur Leukocyte Esterase Negative, Urine RBC 0 SEEN, Urine WBC 0 SEEN, Ur Squamous Epith Cells 0 SEEN, Urine Bacteria 0 SEEN, Urine Mucus 0 SEEN Radiology Impression Abdomen/Pelvis CT 02/18/22 10:48 IMPRESSION: 1. Acute appendicitis. No periappendiceal abscess or perforation. 2. Sigmoid diverticulosis without acute diverticulitis. 3. Atherosclerotic vascular calcifications. Heart size normal. No abdominal aortic aneurysm. 4. Enlarged prostate gland, its central lobe indenting the floor the urinary bladder. 5. Multilevel degenerative changes of the thoracolumbar spine. N.B. : The above Results were Read Back by Chance Schneider MD to Rodrigo Moore MD, and understanding confirmed on 02/18/2022 11:39:34 (ET). Electronically Signed: Chance Schneider MD at 11:41 EDT , ADDENDUM: 02/18/22 1148 IMPRESSION: 1. Acute appendicitis. No periappendiceal abscess or perforation. 2. Sigmoid diverticulosis without acute diverticulitis. 3. Atherosclerotic vascular calcifications. Heart size normal. No abdominal aortic aneurysm. 4. Enlarged prostate gland, its central lobe indenting the floor the urinary bladder. 5. Multilevel degenerative changes of the thoracolumbar spine. N.B. : The above Results were Read Back by Chance Schneider MD to Rodrigo Moore MD, and understanding confirmed on 02/18/2022 11:39:34 (ET). Electronically Signed: Chance Schneider MD at 11:41 EDT , Assessment & Plan Assessment/Plan (1) Acute appendicitis: PLAN: Plan 1. Discussed procedure laparoscopic appendectomy, possible open along with the risk but not limited to bleeding, infection/abscess, injury to another organ (small bowel, colon, etc.), adhesion, hernia at incision sites, and anesthesia. Martina Ha M.D. Pager: [phone] [facility] [address] [place] [address], [address] [place] [address] Office: [phone] Procedure Criteria Type of Procedure Procedure Type: Elective Elective Risks - COVID COVID Risk Discussion: The surgeon/proceduralist and patient have discussed in detail the risk of exposure to and/or potential harm posed by the COVID-19 virus with having a surgery/procedure at this time versus the risk of delaying the surgery/procedure. It is not possible to know either the risk of delaying the surgery or procedure or chance of getting an infection with perfect accuracy, but a joint decision was made between the patient and the surgeon/proceduralist to proceed at this time with the scheduled surgery/procedure as indicated on the consent form.
--- NOTE | 2022-02-18 12:15 | EKG12_ITS ---
Test Reason : PRE-OP Blood Pressure : / mmHG Vent. Rate : 066 BPM Atrial Rate : 066 BPM P-R Int : 148 ms QRS Dur : 094 ms QT Int : 424 ms P-R-T Axes : 013 001 -11 degrees QTc Int : 444 ms Normal sinus rhythm Normal ECG Confirmed by ISAIAH BLACK MD ([id number]), editor house organ LUIGI MCKEON ([id number]) on 02/19/2022 11:12:39 AM Referred By: [facility]ER Confirmed By:ISAIAH BLACK MD
[2022-02-18] MEDS: Lactated Ringers 1,000 ML 15 ML IV (13:15)
[2022-02-18] MEDS: Bupivacaine 0.25% 30 ML Vial (14:29)
--- NOTE | 2022-02-18 14:33 | PCM.OPRPT ---
Report of Operation Date of Procedure: 02/18/22 Pre-Operative Diagnosis: Acute appendicitis Post-Operative Diagnosis: Same Surgery/Procedure Performed:: Laparoscopic appendectomy Surgeon: Martina Ha Type of Anesthesia: General/Supplemental Anesthesiologist: Luis M Rousseau Special Medications: Zosyn 4.5 g IV x1 Specimen's removed: Appendix Estimated Blood Loss (mL): 10 cc Fluids Replaced: Per anesthesia Description of Procedure: Indications: 56-year-old male presented to the ER with new right lower quadrant pain this morning. On workup he was found to have acute appendicitis on CT and a leukocytosis of 11.2. Patient was started on antibiotics in the ER for acute appendicitis-Zosyn 4.5 g IV x1 Description of the procedure: The patient was placed on operating table in supine position. General anesthesia was induced. A timeout was completed verifying correct patient, procedure, position and special equipment prior to beginning procedure. Abdomen was prepped and draped in usual sterile fashion. Incision was made in the natural skin line above the umbilicus with a 15 blade scalpel. The fascia was elevated and incised. Entry into the peritoneum was confirmed visually and no bowel was noted in the vicinity of the incision. The [place] trocar was placed under direct vision. Abdomen insufflated with a pressure of 12-15 mmHg. Patient tolerated insertion well. The scope was inserted and the abdomen inspected. No injuries from initial trocar placement were noted. Minimal amount of fluid was seen in the right lower quadrant. An direct visualization 2 -5 mm trocars were placed one above the symphysis pubis and below the hairline and one in the left lower quadrant lateral to the rectus muscle. Care is taken to avoid injury to the bladder and inferior epigastric vessels. The table was placed in Trendelenburg position with the right side elevated. The appendix was grasped with atraumatic grasper and elevated. It was noted to be inflamed. A window was developed in the mesoappendix at the point between the base of the appendix and the cecum. An endoscopic 45 mm linear cutting stapler blue load was then used to divide and staple the base of the appendix. Enseal was used to divide the mesoappendix. The appendix was withdrawn into the [place] trocar after being placed endoscopically retrieval bag. Appendix was sent to pathology. The appendiceal stump was then irrigated and hemostasis was assured. Fluid was suctioned no other pathology was identified. Secondary trochars were removed under direct visualization. No bleeding was noted trocar sites. The laparoscope withdrawn and the umbilical trocar removed. The abdomen was allowed to collapse. Local anesthesia of 30 mL of 0.25% Marcaine was used at the incision sites. The umbilical trocar site was closed with the [id number] 0 Vicryl suture. The skin was closed using sutures of 4-0 Monocryl and Steri-Strips. The patient was extubated. The patient tolerated the procedure well and was taken to the postanesthesia care unit in satisfactory condition. Complications None
--- NOTE | 2022-02-18 14:35 | DCINST_ITS ---
Discharge Instructions Diet Discharge Diet: Light diet - advance as tolerated Activity Discharge Activity: May Not Drive (while taking narcotic pain medications.) May shower in (days): 1 Lifting Restrictions: no lifting >20 lbs x 2 wks, no strenuous exercise for 4 wks Dressing / Incision Call your doctor if your incision/area has: Continuous Slow Oozing, Sudden Increased Bleeding, Increased Pain/ Swelling, Increased Redness, Foul Smelling Discharge and Swelling at the incision site Call your doctor if you observe: Fever of 101 or Higher Remove Dressing in: 2 days Cleanse incision/area with: Soap & Water Additional Dressing/Incision Instructions:: Steri-Strips will fall off in 7 to 10 days, if they do not fall off okay to remove after 10 days. Follow Up Care Please Follow Up With: Martina Ha MD When: Call the office for a follow-up appointment 2 weeks; after 5 PM and on the weekends call [phone] with any concerns. Test Results: Test results from this visit will be discussed in further detail at your follow- up appointment, if applicable. Discharge Plan Admission Admit Date/Time: 02/18/22 12:56 Attending Provider: Martina Ha Primary Care Provider: Bala Becerra Instructions Additional Instructions / Restrictions: Okay to take ibuprofen 400-600 mg PO q6hr PRN along with the Percocet?if taking ibuprofen hold the celecoxib. Avoid Tylenol since there is already Tylenol in the Percocet. Take all pain meds with food. Percocet can cause constipation recommend taking daily stool softener (i.e. Colace/docusate) while taking the pain meds. Recommend starting some MiraLAX in 1 to 2 days if no bowel movement. If still no bowel movement the following day recommend taking magnesium citrate half the bottle and waiting 4-6 hours if still no results take the other half the bottle. Discharge Orders/Prescriptions Prescriptions: New oxycodone-acetaminophen 5-325 mg tablet 1 - 2 tab PO Q6H PRN (Reason: pain) 3 Days Qty: 14 0RF Continued lisdexamfetamine 40 mg capsule 40 mg PO DAILY Label Comments: TAKE 1 CAPSULE BY MOUTH EVERY DAY IN THE MORNING DNF 12/04/20 carvedilol [Coreg] 6.25 mg tablet 6.25 mg PO BID Qty: 180 3RF Rx Instructions: give with food (meal/snack) rosuvastatin 10 mg tablet 10 mg PO QHS Qty: 90 3RF sildenafil 50 mg tablet 50 mg PO DAILY PRN (Reason: sexual activity) Qty: 30 6RF Rx Instructions: administer 30 minutes to 4 hours before activity escitalopram oxalate 10 mg tablet 10 mg PO DAILY Qty: 90 3RF meclizine 25 mg tablet 25 mg PO TID PRN (Reason: dizziness or vertigo) Qty: 6 0RF eszopiclone 2 MG tablet 2 mg PO QHS PRN PRN (Reason: Sleep) celecoxib 200 MG capsule 200 mg PO DAILY PRN (Reason: Pain Or Fever) nitroglycerin 0.4 mg tablet, sublingual 0.4 mg sublingual Q5M PRN (Reason: chest pain) Qty: 25 3RF Rx Instructions: do not exceed 3 doses per episode aspirin 81 mg tablet,delayed release (DR/EC) 81 mg PO DAILY@0800 Qty: 30 11RF Referrals / Follow Up: Bala Becerra DO [Primary Care Provider] - Disposition Disposition (needs filled in before D/C Order can be placed): Home, Self Care
[2022-02-18] MEDS: Acetaminophen 325 MG Tablet 650 MG PO (16:47)
[2022-02-18] MEDS: oxyCODONE 5 MG Tablet PO (16:48)
--- NOTE | 2022-02-18 19:42 | NURSING ---
pt states he is ready to be d/c vitals taken, family at bedside. pt stable. belongings with pt. [employer] to wheel pt down to main entrance.
== END 2022-02-18 19:45 | disposition home or self-care (01) ==
LOC: ED 11:59 → SDC 12:08 → MS3 13:28
PROVIDERS: Admitting Provider Surgery; Emergency Provider Emergency Medicine; PCP Student in an Organized Health Care Education/Training Program; Visit Provider Surgery
PROC: 0DTJ4ZZ Resection of Appendix, Percutaneous Endoscopic Approach (ICD-10-PCS; CPT 44970; principal; 2022-02-18 13:30)
DX: K35.80 Unspecified acute appendicitis (principal); I48.0 Paroxysmal atrial fibrillation; Z68.41 Body mass index [BMI] 40.0-44.9, adult; K57.30 Diverticulosis of large intestine without perforation or abscess without bleeding; I10 Essential (primary) hypertension; Z79.82 Long term (current) use of aspirin; I25.10 Atherosclerotic heart disease of native coronary artery without angina pectoris; N40.0 Benign prostatic hyperplasia without lower urinary tract symptoms; Z87.891 Personal history of nicotine dependence; E78.5 Hyperlipidemia, unspecified; Z79.899 Other long term (current) drug therapy; I25.2 Old myocardial infarction; E66.9 Obesity, unspecified; G47.33 Obstructive sleep apnea (adult) (pediatric)
CPT/HCPCS: 44970; 00840; 74177; 80048; 80076; 81001; 83690; 85025; 88304; 93005; 96374; 96375; 99283; J7030; J7120; Q9967; A4216; C1760; J2405

== ENCOUNTER 2022-02-19 22:14 | Emergency (ER) | payer BC, SELFPAY ==
[2022-02-19 22:15] VITALS: BP 153/76; PULSE 78; RESP 18; TEMP 37.7; O2SAT 97; BMI 42.5
[2022-02-19 23:22] LABS: Bacteria 0 SEEN /hpf (None Seen); Mucous, Urine 0 SEEN /hpf (<or=2+); Red Blood Cells-Urine 0 SEEN /hpf (0-5); Squamous Epithelial Cells - UA 0 SEEN /hpf (0-5)
--- NOTE | 2022-02-19 23:23 | EX.ED.DYSGE1 ---
HPI History of Present Illness Chief Complaint: Fever Informant: patient and spouse/S.O. Narrative Narrative: Had appendicitis done yesterday. Today he started to have fevers up to 101. He did have some chills with these. He is not coughing or notably short of breath. No nausea vomiting. He is moving bowels. He does state that he has very frequent urination and urgency. He states when he gets the feeling go to the bathroom he can barely get there. This is new and different. He states he is pretty sure he did have a catheter. He has some pain in the area of the surgery but it seems to be well controlled. No drainage or issues with the port sites. [facility] Medical History Chest discomfort Essential hypertension History of non-ST elevation myocardial infarction (NSTEMI) (06/17/17) HLD (hyperlipidemia) Knee pain Nonobstructive atherosclerosis of coronary artery Obesity Obstructive sleep apnea Paroxysmal atrial fibrillation Home Medications celecoxib 200 mg capsule 200 mg PO DAILY PRN Pain Or Fever 08/21/19 [History Last Taken Unknown] eszopiclone 2 mg tablet 2 mg PO QHS PRN PRN Sleep 08/21/19 [History Last Taken Unknown] lisdexamfetamine 40 mg capsule (Vyvanse) 40 mg PO DAILY PRN add 02/07/21 [History Last Taken Unknown] nitroglycerin 0.4 mg sublingual tablet 0.4 mg sublingual Q5M PRN chest pain #25 tabs 03/20/21 [Rx Last Taken Unknown] carvedilol 6.25 mg tablet (Coreg) 6.25 mg PO BID #180 tabs 12/20/21 [Rx Last Taken Unknown] rosuvastatin 10 mg tablet 10 mg PO QHS cholesterol #90 tabs 12/20/21 [Rx Last Taken Unknown] aspirin 81 mg tablet,delayed release 81 mg PO DAILY@0800 #30 tabs 01/16/22 [Rx Last Taken Unknown] oxycodone-acetaminophen 5 mg-325 mg tablet 1 - 2 tab PO Q6H PRN pain 3 days #14 tabs 02/18/22 [Rx Last Taken Unknown] escitalopram oxalate 10 mg tablet (Lexapro) 10 mg PO DAILY 02/19/22 [History Last Taken Unknown] meclizine 25 mg tablet (Dramamine (meclizine)) 25 mg PO TID PRN dizziness or vertigo 02/19/22 [History Last Taken Unknown] sildenafil 50 mg tablet (Viagra) 50 mg PO DAILY PRN sexual activity 02/19/22 [History Last Taken Unknown] Allergy/AdvReac Type Severity Reaction Status Date / Time No Known Allergies Allergy Verified 02/18/22 10:00 Family History Mother Crohn disease Grandmother Diabetes Surgical History History of appendectomy History of left heart catheterization (06/17/17) Social History Smoking Status: Unknown if ever smoked how long ago did patient quit smokin alcohol intake: never substance use type: does not use caffeine: Yes Type: coffee what type of physical activity do you participate in: none seatbelt use: always do you feel safe at home: Yes ROS ROS ED Constitutional Constitutional ED: Reports chills and fever(s); Denies sweats Eyes Eyes: Denies change in vision ENT ENT ED: Denies rhinorrhea or sore throat Cardiovascular Cardiovascular: Denies chest pain or palpitations Respiratory/Chest Respiratory/Chest: Denies cough or dyspnea Gastrointestinal Gastrointestinal: Reports abdominal pain; Denies nausea or vomiting Genitourinary Genitourinary ED: Reports dysuria and urinary frequency; Denies hematuria Musculoskeletal Musculoskeletal: Denies arthralgias, back pain, myalgias or neck pain Integumentary Denies abscess, Abrasions or rash Neurologic Neurologic: Denies headache(s) Endocrine Endocrinology: Reports polyuria; Denies polydipsia Hematologic/Lymphatic Hematologic/Lymphatic: Denies easy bleeding or easy bruising Allergic/Immunologic Allergic/Immunologic ED: Denies urticaria EXAM Physical Exam Const Vital Signs: 02/19/22 22:15 02/19/22 22:42 02/20/22 00:45 Temperature 99.8 F H Temperature Source Temporal Pulse Rate 78 76 Respiratory Rate 18 18 Respiratory Effort Normal Non-Labored Respiratory Pattern Normal Blood Pressure 153/76 H Blood Pressure Mean 101 Pulse Ox 97 100 Oxygen Delivery Method Room Air Positive well nourished, well developed and obese General Appearance ED: well developed and NAD Nutritional Appearance: obese HEENT Reports moist mucous membranes Eyes General Eye ED: Negative for scleral icterus Neck no lymphadenopathy Resp normal respiratory effort and clear to auscultation bilaterally Auscultation: Negative for rales, rhonchi, wheezes or diminished lung sounds Cardio regular rate, regular rhythm and no murmurs GI normal to inspection, nondistended, normoactive bowel sounds GI Narrative: Exam shows clean port sites. There is no drainage of significance on his dressings. There is no erythema. There is no notable tenderness. Overall this is relatively normal exam especially considering he is postoperative day 1. Back/Spine no CVA tenderness Extremity normal to inspection Extremity Narrative: No asymmetry, cords, tenderness, distended veins. General Extremety ED: Negative for edema or tenderness General Extremity: Negative for edema Neuro Sensorium / Orientation: alert Psych mental status grossly normal Skin no rashes or lesions noted MDM MDM MDM Narrative Medical decision making narrative: CBC shows normal white count and this is decreased from admission. Hemoglobin is just minimally low at 12.3. Electrolytes show some mild increase in BUN and creatinine. However no other acute process. Urine is actually quite clean and clear appearing. Chest x-ray does show some atelectasis in the left base. This might be the cause of his low-grade fever. Because his urine did not show any acute process and we did not have a definitive answer for the fever, we did do CT scan of his abdomen. This showed postoperative changes and trace air in the abdominal wall. There is no sign of abdominal wall cellulitis. I think his symptoms may be due to atelectasis. I will get an incentive spirometer. COVID and flu are also negative. I did discuss the case with Dr. Melendez. Plan will be close outpatient follow-up. Lab Data Attestation: I reviewed the patient's lab results. Labs: Laboratory Results - last 24 hr 02/19/22 02/19/22 02/19/22 23:00 23:00 23:05 WBC 6.1 RBC 4.41 L Hgb 12.3 L Hct 38.1 L MCV 86.4 MCH 27.9 MCHC 32.3 RDW Std Deviation 45.7 H RDW Coeff of Bruce 14.4 Plt Count 92 L MPV 10.7 Immature Gran % (Auto) 1.600 H Neut % (Auto) 85.5 H Lymph % (Auto) 5.2 L Toole % (Auto) 7.0 Eos % (Auto) 0.2 Baso % (Auto) 0.5 Absolute Neuts (auto) 5.2 Absolute Lymphs (auto) 0.32 L Nucleated RBC % 0 Differential Comment SCANNED Platelet Estimate SLT DEC Sodium 141 Potassium 3.5 Chloride 110 H Carbon Dioxide 26.0 Anion Gap 5 BUN 23 H Creatinine 1.15 Estim Creat Clear Calc 87.77 Est GFR (MDRD) Af Amer 85 Est GFR (MDRD) Non-Af 70 BUN/Creatinine Ratio 20.0 Glucose 119 H Calcium 8.8 Urine Color Yellow Urine Clarity Clear Urine pH 5.0 Ur Specific [place] 1.020 Urine Protein 15 H Urine Glucose (UA) Normal Urine Ketones Negative Urine Occult Blood 25 H Urine Nitrite Negative Urine Bilirubin Negative Urine Urobilinogen Normal Ur Leukocyte Esterase Negative Urine RBC 0 SEEN Urine WBC 0-5 SEEN Ur Squamous Epith Cells 0 SEEN Urine Bacteria 0 SEEN Urine Mucus 0 SEEN Radiography Diagnostic Testing: Clinical Impression(s) from Imaging Studies Chest X-Ray 02/19/22 23:34 IMPRESSION: 1. Subsegmental atelectasis left lung base. 2. No acute cardiopulmonary abnormality. Electronically Signed: Bala Alonso MD at 0:06 EDT , Abdomen/Pelvis CT 02/20/22 00:25 IMPRESSION: 1. Status post appendectomy. Mild inflammatory changes at the operative site. No abscess. 2. Sigmoid diverticulosis without diverticulitis. 3. Tiny nonobstructing stone left kidney. 4. Trace amount of postoperative gas in the anterior abdominal wall. 5. Fatty liver. Electronically Signed: Bala Alonso MD at 1:17 EDT , Discharge Plan Triage Chief Complaint: Fever ED Provider: Maico Sow Dx/Rx/DC Orders Clinical Impression: Postoperative fever, Atelectasis Instructions: ED Atelectasis Prescriptions: No Action Vyvanse 40 mg capsule 40 mg PO DAILY PRN (Reason: add) Label Comments: TAKE 1 CAPSULE BY MOUTH EVERY DAY IN THE MORNING DNF 12/04/20 carvedilol [Coreg] 6.25 mg tablet 6.25 mg PO BID Qty: 180 3RF Rx Instructions: give with food (meal/snack) rosuvastatin 10 mg tablet 10 mg PO QHS Qty: 90 3RF eszopiclone 2 MG tablet 2 mg PO QHS PRN PRN (Reason: Sleep) celecoxib 200 MG capsule 200 mg PO DAILY PRN (Reason: Pain Or Fever) oxycodone-acetaminophen 5-325 mg tablet 1 - 2 tab PO Q6H PRN (Reason: pain) 3 Days Qty: 14 0RF sildenafil [Viagra] 50 mg tablet 50 mg PO DAILY PRN (Reason: sexual activity) Rx Instructions: administer 30 minutes to 4 hours before activity meclizine [Dramamine (meclizine)] 25 mg tablet 25 mg PO TID PRN (Reason: dizziness or vertigo) escitalopram oxalate [Lexapro] 10 mg tablet 10 mg PO DAILY nitroglycerin 0.4 mg tablet, sublingual 0.4 mg sublingual Q5M PRN (Reason: chest pain) Qty: 25 3RF Rx Instructions: do not exceed 3 doses per episode aspirin 81 mg tablet,delayed release (DR/EC) 81 mg PO DAILY@0800 Qty: 30 11RF Primary Care Provider: Bala Becerra Referrals: Bala Becerra DO [Primary Care Provider] - Martina Ha MD [STAFF PHYSICIAN] - 2 Days for wound check Disposition Disposition: Home, Self Care
[2022-02-19 23:24] LABS: Color, Urine Yellow (Yellow); Glucose, Dipstick Normal (Normal); Ketone-Dipstick Negative (Negative); Leukocyte Esterase-Dipstick Negative /ul (Negative); Nitrite-Dipstick Negative (Negative); Occult Blood-Urine 25 /ul (Negative); Protein-Dipstick 15 mg/dl (Negative); Urine Bilirubin Dipstick Negative (Negative); Urine Clarity Clear (Clear); Urine Urobilinogen Normal (Normal)
[2022-02-19 23:26] LABS: Anion Gap 5 (5-15); BUN 23 mg/dL (7-18); Calcium,Total 8.8 mg/dL (8.5-10.1); Chloride 110 mmol/L (98-107); Creatinine, Serum 1.15 mg/dL (0.70-1.30); EST Glomerular Filtration Rate 70 mL/min (>60); Est Glom Filt Rate - Afr Amer 85 mL/min (>60); Estimated Creatinine Clearance 87.77 ml/min; Glucose 119 mg/dL (74-106); Potassium 3.5 mmol/L (3.5-5.1); Sodium Level 141 mmol/L (136-145)
[2022-02-19 23:34] LABS: Absolute Lymphocyte Count 0.32 X10^3/uL (0.83-4.51); Absolute Neutrophil Count 5.2 X10^3/uL (2.0-7.7); Basophil# 0.03 X10^3/uL; Basophil% 0.5 % (0-1); Differential Indicated SCAN CRITERIA MET; Eosinophil# 0.01 X10^3/uL; Eosinophils% 0.2 % (0-5); Hematocrit 38.1 % (40-54); Hemoglobin 12.3 g/dL (13.0-16.5); Lymphocyte # 0.32 X10^3/ul (0.83-4.51); Lymphocyte % 5.2 % (19-41); Mean Corp Hgb Conc 32.3 g/dL (32-36); Mean Corpuscular Hgb 27.9 pg (27.0-32.0); Mean Corpuscular Volume 86.4 fL (80-94); Mean Platelet Vol. 10.7 fl (6.2-12.0); Monocyte# 0.43 X10^3/uL; NRBC Flagged by Analyzer 0 % (0-5); Neutrophil # 5.22 X10^3/uL (2.7-7.7); Neutrophil % 85.5 % (47-70); POSITIVE COUNT YES; POSITIVE DIFFERENTIAL YES; Platelet Count 92 K/mm3 (150-450); RBC Distribution Width CV 14.4 % (11.6-14.6); RBC Distribution Width SD 45.7 fl (35.1-43.9); Red Blood Count 4.41 M/mm3 (4.6-6.2); White Blood Count 6.1 K/mm3 (4.4-11.0)
--- NOTE | 2022-02-19 23:34 | RAD_ITS ---
EXAM: XR CHEST, 2 VIEWS CLINICAL INDICATION: fever TECHNIQUE: Frontal and lateral views of the chest. This report was created using [employer] report generation technology. COMPARISON: 06/16/2017. FINDINGS: LUNGS AND PLEURAL SPACES: Subsegmental atelectasis left lung base. No consolidations. No pneumothorax. No effusion. HEART: Unremarkable. Cardiac silhouette not enlarged. MEDIASTINUM: Central airways and mediastinal contour are unremarkable. BONES/JOINTS: Unremarkable. SOFT TISSUES: Unremarkable. RAD/Chest PA and Lateral IMPRESSION: 1. Subsegmental atelectasis left lung base. 2. No acute cardiopulmonary abnormality. Electronically Signed: Bala Alonso MD at 0:06 EDT ,
[2022-02-19 23:52] LABS: White Blood Cells 0-5 SEEN /hpf (0-5)
[2022-02-20] LABS: Differential Comment SCANNED
[2022-02-20 00:01] LABS: Platelet Estimate SLT DEC (ADEQ)
--- NOTE | 2022-02-20 00:25 | CT_ITS ---
EXAM: CT ABDOMEN AND PELVIS WITH INTRAVENOUS CONTRAST CLINICAL INDICATION: fever post operative TECHNIQUE: Helically acquired images were obtained of the abdomen and pelvis with intravenous contrast. This CT exam was performed using one or more of the following dose reduction techniques: automated exposure control, adjustment of the mA and/or kV according to patient size, and/or use of iterative reconstruction technique. This report was created using [employer] report generation technology. CONTRAST: IV 100mL Isovue-370 RADIATION DOSE: CTDIvol = 45.59 mGy, DLP = 1914.59 mGy-cm. COMPARISON: 02/18/2022. FINDINGS: LOWER THORAX: Unremarkable. Lung bases are clear. No cardiomegaly. No significant pericardial effusion. ABDOMEN: LIVER: There is diffuse low-attenuation of the liver. GALLBLADDER AND BILE DUCTS: Unremarkable. No calcified gallstones. No gallbladder distention or wall edema. No intra- or extrahepatic biliary ductal dilation. PANCREAS: Unremarkable. No focal cystic or solid mass. SPLEEN: Unremarkable. Normal size without focal cystic or solid mass. ADRENALS: Unremarkable. No nodules. KIDNEYS AND URETERS: Tiny nonobstructing stone left kidney. Normal renal size and position. STOMACH AND BOWEL: Sigmoid diverticulosis without diverticulitis. No stomach or bowel distention. PELVIS: APPENDIX: Status post appendectomy. Mild inflammatory changes at the operative site. BLADDER: Unremarkable. REPRODUCTIVE: Unremarkable as visualized. No mass. ABDOMEN and PELVIS: INTRAPERITONEAL SPACE: Unremarkable. No ascites or other fluid collection. No free air. BONES/JOINTS: Unremarkable. No suspicious lytic or blastic abnormality. SOFT TISSUES: Trace amount of postoperative gas in the anterior abdominal wall. No discrete abdominal or pelvic wall hernia. VASCULATURE: Unremarkable. Abdominal aorta is non-dilated. LYMPH NODES: Unremarkable. No enlarged lymph nodes. CT/Abdomen/Pelvis WITH Contrast IMPRESSION: 1. Status post appendectomy. Mild inflammatory changes at the operative site. No abscess. 2. Sigmoid diverticulosis without diverticulitis. 3. Tiny nonobstructing stone left kidney. 4. Trace amount of postoperative gas in the anterior abdominal wall. 5. Fatty liver. Electronically Signed: Bala Alonso MD at 1:17 EDT ,
[2022-02-20 00:45] VITALS: PULSE 76; RESP 18; O2SAT 100
[2022-02-20] MEDS: Morphine 4 MG/ML Syringe IV (01:14)
[2022-02-20] MEDS: Ondansetron 4 MG/2 ML Vial IV (01:14)
[2022-02-20 01:45] VITALS: BP 151/69; PULSE 92; TEMP 36.9; O2SAT 100
== END 2022-02-20 01:50 | disposition home or self-care (01) ==
PROVIDERS: Emergency Provider Emergency Medicine; PCP Student in an Organized Health Care Education/Training Program; Visit Provider Emergency Medicine
DX: J98.11 Atelectasis (principal); I25.10 Atherosclerotic heart disease of native coronary artery without angina pectoris; I10 Essential (primary) hypertension; E78.5 Hyperlipidemia, unspecified; R35.0 Frequency of micturition; R39.15 Urgency of urination; R50.82 Postprocedural fever; E66.9 Obesity, unspecified; Z79.899 Other long term (current) drug therapy; Z87.891 Personal history of nicotine dependence; Z20.822 Contact with and (suspected) exposure to COVID-19; Z90.49 Acquired absence of other specified parts of digestive tract
CPT/HCPCS: 71046; 74177; 80048; 81001; 85025; 87086; 87428; 96374; 96375; 99283; Q9967; A4216; J2405

== ENCOUNTER → 2022-03-23 | Outpatient (CLI) | payer BC, SELFPAY ==
--- NOTE | 2022-03-23 12:14 | EKG12_ITS ---
Test Reason : CAD Blood Pressure : / mmHG Vent. Rate : 057 BPM Atrial Rate : 057 BPM P-R Int : 136 ms QRS Dur : 094 ms QT Int : 438 ms P-R-T Axes : 041 017 011 degrees QTc Int : 426 ms Sinus bradycardia Otherwise normal ECG Confirmed by RAQUEL BARTON, ANÍBAL ([id number]), editor index JENNIFER MOLINA ([id number]) on 03/26/2022 9:04:11 AM Referred By: Bala Becerra Confirmed By:ANÍBAL GARCÍA MD
--- NOTE | 2022-03-23 12:20 | CT_ITS ---
STUDY: CT CHEST WITHOUT CONTRAST REASON FOR EXAM: Male, 56 years old. CAD RADIATION DOSAGE (If Supplied By Facility): CTDIvol = ( 12.19 ) mGy, DLP = ( 195.04 ) mGycm TECHNIQUE: Transaxial imaging was performed without the administration of intravenous contrast material. Individualized dose optimization techniques were used for this CT. COMPARISON: No relevant priors. FINDINGS: CHEST The lungs are normal. There is no demonstrated pleural abnormality. There are calcifications of the coronary arteries. There are multiple small lymph nodes within the mediastinum, which are normal in size and morphology most compatible with reactive lymph hyperplasia. Normal hilar regions. Normal unenhanced pulmonary arteries. Normal aorta arch and descending thoracic aorta. Normal osseous structures. Small hiatal hernia. CT/Limited Chest CT Cardiac Only IMPRESSION: Coronary artery calcification. Electronically Signed: Eusebio Lua MD at 13:28 EDT ,
[2022-03-23 12:25] VITALS: BP 142/72; PULSE 66; RESP 16; O2SAT 97; BMI 41.2
--- NOTE | 2022-03-23 13:05 | CA.SCORE ---
Calcium Scoring Date of Study:: 03/23/22 Indications Indications: Chest pain Coronary Calcium Scoring: High-resolution Computed Tomographic imaging of the chest was performed on [03/23/2022], with particular attention paid to the coronary arteries. Images from the examination were analyzed for the presence and extent of coronary artery calcification , using coronary calcium quantification software. The patient tolerated the procedure well and there were no complications. The results of the coronary calcification analysis are provided below. Findings Coronary Artery Left Main (LM): 0 Left Anterior Descending (LAD): 28 Left Circumflex (LCX): 0 Right Coronary Artery (RCA): 194 Total Agatston Score: 222 Percentile Ranking: Percentile ranking between 75th and 90. Calcium Scoring Interpretation: 0 No identifiable atherosclerotic plaque. Very low cardiovascular disease risk. <5% chance of presence coronary artery disease A Negative Examination 1-10 Minimal Plaque burden. Significant coronary artery disease very unlikely. 11-100 Mild plaque burden. Likely mild or minimal coronary atherosclerosis. 101-400 Moderate plaque burden Moderate non-obstructive coronary artery disease highly likely. Over 400 Extensive plaque burden. High likelihood of at least one significant coronary stenosis (>50% diameter)
== END | disposition home or self-care (01) ==
PROVIDERS: PCP Student in an Organized Health Care Education/Training Program; Referring Provider Student in an Organized Health Care Education/Training Program; Visit Provider Student in an Organized Health Care Education/Training Program
DX: I25.10 Atherosclerotic heart disease of native coronary artery without angina pectoris (principal); I70.90 Unspecified atherosclerosis
CPT/HCPCS: 75571; 76380; 93005

== ENCOUNTER → 2022-05-18 | Outpatient (CLI) | payer BC, SELFPAY ==
[2022-05-18 08:12] LABS: Hematocrit 42.1 % (40-54); Hemoglobin 13.9 g/dL (13.0-16.5); Mean Corpuscular Hgb 28.4 pg (27.0-32.0); Mean Corpuscular Volume 85.9 fL (80-94); Mean Platelet Vol. 10.6 fl (6.2-12.0); Platelet Count 131 K/mm3 (150-450); RBC Distribution Width CV 13.7 % (11.6-14.6); RBC Distribution Width SD 42.7 fl (35.1-43.9); White Blood Count 7.3 K/mm3 (4.4-11.0)
[2022-05-18 08:39] LABS: AST(SGOT) 10 U/L (15-37); Alanine Aminotransfer ALT/SGPT 19 U/L (16-61); Albumin, Serum 3.7 g/dL (3.2-5.0); Alkaline Phosphatase 75 U/L (45-117); Anion Gap 7 (5-15); BUN 26 mg/dL (7-18); BUN/Creat Ratio 26.9 RATIO (10-20); Chloride 109 mmol/L (98-107); Cholesterol 145 mg/dL (200); Creatinine, Serum 0.97 mg/dL (0.70-1.30); EST Glomerular Filtration Rate 86 mL/min (>60); Est Glom Filt Rate - Afr Amer 104 mL/min (>60); Globulin 3.7 g/dL (2.2-4.2); Glucose 105 mg/dL (74-106); High Density Lipoprotein 44 mg/dL; Potassium 3.8 mmol/L (3.5-5.1); Protein, Total 7.4 g/dL (6.4-8.2); Sodium Level 141 mmol/L (136-145); Triglycerides 82 mg/dL; Very Low Density Lipoprotein 16 mg/dL (5-40)
[2022-05-18 09:47] LABS: Syphilis Antibodies Non-reactive
[2022-05-18 09:53] LABS: Chlamydia Trachomatis by PCR Negative (Negative); Neisserai gonorrhoeae by PCR Negative (Negative); Probe Check PASS; Sample Adequacy Control PASS; Specimen Processing Control PASS
[2022-05-19 07:10] LABS: HEPATITIS B SURFACE AG Negative (Negative); Hep C Antibodies <0.1 s/co ratio (0.0-0.9); Hepatitis A IgM Antibody Negative (Negative); Hepatitis B Core AB IgM Negative (Negative)
[2022-05-19 10:49] LABS: V-Zoster IgG (Immunity) 259 index (Immune >165)
== END | disposition home or self-care (01) ==
PROVIDERS: PCP Student in an Organized Health Care Education/Training Program; Referring Provider Student in an Organized Health Care Education/Training Program; Visit Provider Student in an Organized Health Care Education/Training Program
DX: Z01.84 Encounter for antibody response examination (principal); I25.10 Atherosclerotic heart disease of native coronary artery without angina pectoris; Z20.2 Contact with and (suspected) exposure to infections with a predominantly sexual mode of transmission
CPT/HCPCS: 36415; 80053; 80061; 80074; 85027; 86780; 86787; 87491; 87591

== ENCOUNTER 2022-10-22 18:00 | Outpatient (RCR) | payer BC, SELFPAY ==
--- NOTE | 2022-09-26 18:55 | HP.PTEVAL ---
Patient's Visit Information CHRISTINA BHATT is a 57 year old M referred to Physical Therapy by SUE COSTA with a diagnosis of Chondromalacia of L knee. Date of Evaluation: 09/26/22 Physical Therapist: ELENA Cruz - Visit Plan Frequency: 2x /Week Duration: 2 Months Plan: 2X/ week for 8 weeks for L hip and knee strength, core strength, and ankle strength, gait training, functional activities such as stairs and transfers. May use ice as needed. (Please use the bike for endurance and fluid reduction) - Subjective Pt has no idea what happened. He literally was not doing anything and he started with pain about a week after [place] [employer] and it just kept building up and was horrible pain. Through a friend of his who is an orthopedic got him in [facility] and nothing was broken on x-rays and then went up to [facility] and took a bunch of fluid out his knee and got a cortizone shot and he was put on another anti-inflammatory. Dr said to give it some time. He asked for PT and a knee brace. He hears cracking and clicking. He says now he feels the pain has somewhat gone away and now he is starting to have pain along the lateral calf and he feels like his leg wants to give out and he has to be very careful. Even his R ankle hurts now cause he is walking weird. He got the cortizone shot 2.5 weeks ago. He goes back to the ortho if PT is helping or not. He does stairs twice a day but he does them very slowly with a railing. - Pain L knee pain Pain Intensity (Out of 10): 3 - Objective Gait: Pt walks with decreased stride length, decreased stance time on the L and walks with feet WBOS and valgus on the L knee. He has a L foot slap. LE MMT: R hip flex 15# and L 6.7#. R knee ext 33.4 and L 25.6#. R hip abd 7.8# and L 8.8. R hip ext 12.6 and L 9.8#. R knee flex 19.1 and L 14.1#. AROM. R knee AROM: 0-127 degrees. L knee AROM: 0-115 degrees. Pt is able to SLR and has a good Quad set and S/L hip abd. Pt is able to stand heel and toe raise - Balance/Special Test Scores Lower Extremity Functional Score: 29 - Goals Goal 1:: I HEP Goal Time Frame: 6-8 Weeks Goal 2:: Increase L knee AROM to 127 degrees knee flexion (at time of eval 0-115) Goal Time Frame: 6-8 Weeks Goal 3:: Increase LE strength by 1/2 muscle grade (at the time of the eval R hip flex 15# and L 6.7#. R knee ext 33.4 and L 25.6#. R hip abd 7.8# and L 8.8. R hip ext 12.6 and L 9.8#. R knee flex 19.1 and L 14.1#). Goal Time Frame: 6-8 Weeks Goal 4:: Be able to walk with equal stance time on B LE's and no foot slap Goal Time Frame: 6-8 Weeks - Rehabilitation Potential Rehabilitation Potential: Good - Anticipated Interventions Patient/Client Instruction: Educate patient on: Condition, Plan of Care For the Purpose of:: To decrease pain, To increase ROM, To improve nutrient delivery to tissue, To improve muscle performance and motor function, To improve ability to perform ADL's, To increase tolerance to activity/condition/position, To decrease level of supervision to perform tasks, To improve ability of physical actions for home/community/work/leisure, To improve gait and locomotor functions, To improve health of tissue, To increase flexibility/ROM, To improve balance Therapeutic Exercise to Include: Strength training, Balance training, Coordination, Postural training, Flexibilty training, Gait and locomotor training, Neuromotor development, Passive ROM, Active ROM, Dynamic Lumbar Stabilization For the Purpose of:: To decrease pain, To increase ROM, To improve nutrient delivery to tissue, To improve muscle performance and motor function, To improve ability to perform ADL's, To increase tolerance to activity/condition/position, To improve performance and independence with ADL's, To decrease level of supervision to perform tasks, To improve ability of physical actions for home/community/work/leisure, To improve gait and locomotor functions, To improve health of tissue, To decrease soft tissue restriction, To increase flexibility/ROM, To improve endurance, To improve balance Functional Training to Include: Gait training For the Purpose of:: To improve gait and locomotor functions, To improve safety with gait Manual Therapy Techniques to Include: Passive ROM For the Purpose of:: To increase ROM Cryotherapy (ice pack, ice massage): Yes For the Purpose of:: To decrease pain, To decrease swelling/inflammation, To increase ROM Thank you for the opportunity to evaluate your patient. For Medicare and Medicare HMO plans, please review the plan of care and approve it. It will need to be FAXED BACK to us at [phone] for Medicare purposes. For Medicare only, by signing this I certify the plan of care. Please let me know if there are questions or concerns regarding this plan of care. Physician Signature: Date:
--- NOTE | 2023-02-13 16:23 | HP.PT.NRP ---
Patient Information Patient Information: CHRISTINA BHATT was seen in my office for initial evaluation on 09/26/22. The following Plan of Care was established for this patient: POC Established Initial Frequency: 2x /Week Initial Duration: 2 Months Anticipated Interventions Patient/Client Instruction: Educate patient on: Condition and Plan of Care For the Purpose of:: To decrease pain, To increase ROM, To improve nutrient delivery to tissue, To improve muscle performance and motor function, To improve ability to perform ADL's, To increase tolerance to activity/condition/position, To decrease level of supervision to perform tasks, To improve ability of physical actions for home/community/work/leisure, To improve gait and locomotor functions, To improve health of tissue, To increase flexibility/ROM and To improve balance Therapeutic Exercise to Include: Strength training, Balance training, Coordination, Postural training, Flexibilty training, Gait and locomotor training, Neuromotor development, Passive ROM, Active ROM and Dynamic Lumbar Stabilization For the Purpose of:: To decrease pain, To increase ROM, To improve nutrient delivery to tissue, To improve muscle performance and motor function, To improve ability to perform ADL's, To increase tolerance to activity/condition/position, To improve performance and independence with ADL's, To decrease level of supervision to perform tasks, To improve ability of physical actions for home/community/work/leisure, To improve gait and locomotor functions, To improve health of tissue, To decrease soft tissue restriction, To increase flexibility/ROM, To improve endurance and To improve balance Functional Training to Include: Gait training For the Purpose of:: To improve gait and locomotor functions and To improve safety with gait Manual Therapy Techniques to Include: Passive ROM For the Purpose of:: To increase ROM Cryotherapy (ice pack, ice massage): Yes For the Purpose of:: To decrease pain, To decrease swelling/inflammation and To increase ROM Last Seen Last Seen: This patient was last seen in our office 11/09/22. Pertinent comments regarding their Physical therapy will appear below: [facility] PT as pt cx several of his remaining appts At this point I will be discontinuing this patient from physical therapy. I would be happy to see this patient again in the future if found appropriate by the physician. Thank you! Soraya Swanson, MPT Balance/Gait/Functional tests Balance/Special Test Scores Lower Extremity Functional Score: 29
== END 2022-10-22 19:00 | disposition home or self-care (01) ==
LOC: PT 18:00
PROVIDERS: PCP Student in an Organized Health Care Education/Training Program
DX: M94.262 Chondromalacia, left knee (principal)
CPT/HCPCS: 97110; 97161

== ENCOUNTER 2023-01-24 17:05 | Emergency (ER) | payer BC, SELFPAY ==
[2023-01-24 17:06] VITALS: TEMP 36.3; BMI 43.8
[2023-01-24 17:14] VITALS: BP 155/86; PULSE 68; O2SAT 96
--- NOTE | 2023-01-24 17:35 | EDS_ITS ---
HPI <CJ Zapata - Last Filed: 01/24/23 19:22> History of Present Illness Chief Complaint: Edema Narrative Narrative: Patient presenting today with increasing edema to his left lower extremity. He reports that he had a left knee replacement last and feels that it is becoming more swollen, especially over the last 2 to 3 days. He reports concerns that he could have a DVT, he denies any prior history of DVT. He is not on any blood thinners. He denies any purulent discharge, dehiscence, increased erythema or edema to the incision site. He does not follow-up with his surgeon until early February. Surgery was performed by Dr. Abel with the [facility]. He denies any fever, chills. PFSH <CJ Zapata - Last Filed: 01/24/23 19:22> [facility] Medical History Chest discomfort Essential hypertension History of non-ST elevation myocardial infarction (NSTEMI) (06/17/17) HLD (hyperlipidemia) Knee pain Nonobstructive atherosclerosis of coronary artery Obesity Obstructive sleep apnea Paroxysmal atrial fibrillation Home Medications celecoxib 200 mg capsule 200 mg PO DAILY PRN Pain Or Fever 08/21/19 [History Last Taken Unknown] eszopiclone 2 mg tablet 2 mg PO QHS PRN PRN Sleep 08/21/19 [History Last Taken Unknown] lisdexamfetamine 40 mg capsule (Vyvanse) 40 mg PO DAILY PRN add 02/07/21 [History Last Taken Unknown] aspirin 81 mg tablet,delayed release 81 mg PO DAILY@0800 #30 tabs 01/16/22 [Rx Last Taken Unknown] oxycodone-acetaminophen 5 mg-325 mg tablet 1 - 2 tab PO Q6H PRN pain 3 days #14 tabs 02/18/22 [Rx Last Taken Unknown] escitalopram oxalate 10 mg tablet (Lexapro) 10 mg PO DAILY 02/19/22 [History Last Taken Unknown] meclizine 25 mg tablet (Dramamine (meclizine)) 25 mg PO TID PRN dizziness or vertigo 02/19/22 [History Last Taken Unknown] carvedilol 6.25 mg tablet (Coreg) 6.25 mg PO BID #180 tabs 07/12/22 [Rx Last Taken Unknown] nitroglycerin 0.4 mg sublingual tablet 0.4 mg sublingual Q5M PRN chest pain #25 tabs 07/12/22 [Rx Last Taken Unknown] sildenafil 50 mg tablet (Viagra) 50 mg PO DAILY PRN Pt aware not to take in 24 hours of nitro #30 tabs 07/12/22 [Rx Last Taken Unknown] rosuvastatin 10 mg tablet See Rx Instructions .Route .COMPLEX #90 tabs 01/07/23 [Rx Last Taken Unknown] Allergy/AdvReac Type Severity Reaction Status Date / Time No Known Allergies Allergy Verified 02/23/22 09:27 Family History Mother Crohn disease Grandmother Diabetes Surgical History History of appendectomy History of left heart catheterization (06/17/17) Knee joint replacement status Social History Smoking Status: Former smoker how long ago did patient quit smokin alcohol intake: never substance use type: does not use caffeine: Yes Type: coffee what type of physical activity do you participate in: none seatbelt use: always do you feel safe at home: Yes ROS <CJ Zapata - Last Filed: 01/24/23 19:22> ROS ED Constitutional Constitutional ED: Denies chills or fever(s) Cardiovascular Cardiovascular: Denies chest pain Respiratory/Chest Respiratory/Chest: Denies cough or dyspnea Gastrointestinal Gastrointestinal: Denies abdominal pain, nausea or vomiting Musculoskeletal Musculoskeletal: Reports arthralgias and myalgias Integumentary Denies abscess, Abrasions or rash Neurologic Neurologic: Denies paresthesias or weakness EXAM <CJ Zapata - Last Filed: 01/24/23 19:22> Physical Exam Const Vital Signs: 01/24/23 17:06 01/24/23 17:14 01/24/23 19:04 Temperature 97.3 F L Temperature Source Temporal Pulse Rate 68 89 Respiratory Rate 17 Blood Pressure 155/86 H Blood Pressure Mean 109 Pulse Ox 96 99 Oxygen Delivery Method Room Air Positive well nourished, well developed and no apparent distress General Appearance ED: well developed HEENT Reports normocephalic and head/scalp atraumatic Mouth ED: Yes moist mucous membranes normal Eyes PERRL and EOMs intact bilaterally Neck full ROM and supple Chest Wall inspection of chest normal Resp normal respiratory effort and clear to auscultation bilaterally Cardio regular rate and regular rhythm GI soft to palpation, non-tender, non-distended and no masses Back/Spine normal ROM and normal to inspection Extremity Extremity Narrative: Postoperative knee replacement, sutures are intact, incision site is without erythema, edema, dehiscence, or purulent discharge. Scattered ecchymosis to the left lower extremity with slight edema in comparison to the right lower extremity. Neuro oriented x3, CN's II-XII intact bilaterally, moves all extremities, no focal motor deficits and no sensory deficits noted Sensorium / Orientation: awake and alert Psych mental status grossly normal and thought process normal Skin no rashes or lesions noted and no wounds <Dr. Shiraz Espinoza DO - Last Filed: 01/25/23 00:29> Physical Exam Const Vital Signs: 01/24/23 17:06 01/24/23 17:14 01/24/23 19:04 Temperature 97.3 F L Temperature Source Temporal Pulse Rate 68 89 Respiratory Rate 17 Blood Pressure 155/86 H Blood Pressure Mean 109 Pulse Ox 96 99 Oxygen Delivery Method Room Air MDM <CJ Zapata - Last Filed: 01/24/23 19:22> [facility] Narrative Medical decision making narrative: Patient presenting today with concerns that he could have a DVT in his left lower extremity. He is status postop knee replacement that occurred 1 week ago. Slight edema in the left leg in comparison to the right. Scattered ecchymosis to the left leg. Surgical incision shows intact sutures, dehiscence, no erythema, edema, or purulent discharge from the incision site. there are no signs of cellulitis. Venous duplex ultrasound will be obtained to rule out DVT and is negative. Patient had several questions regarding wound care, I did consult with Dr. Sandoval just to ask general postoperative wound care instructions and he recommended to keep the area clean and wash it with unscented soap and water daily, not to submerge it in any bodies of water. I have communicated this to patient, he is to follow-up with his surgeon and will be discharged home in stable condition. He has been given Percocet for pain as he is due at this hour. He is comfortable with plan. Radiography Diagnostic Testing: Clinical Impression(s) from Imaging Studies Venous Duplex 01/24/23 17:38 IMPRESSION: 1. No sonographic evidence of deep venous thrombosis/DVT in the LEFT lower extremity venous system. 2. No sonographic evidence of superficial thrombophlebitis. 3. Anechoic collection posterior to the knee measuring 3.3 x 2.4 x 2.2 cm. Rose cyst versus a small seroma are considerations. No abnormal blood flow. Electronically Signed: Doyle Herrera MD at 18:51 EDT , <Dr. Shiraz Espinoza, DO - Last Filed: 01/25/23 00:29> [facility] Radiography Diagnostic Testing: Clinical Impression(s) from Imaging Studies Venous Duplex 01/24/23 17:38 IMPRESSION: 1. No sonographic evidence of deep venous thrombosis/DVT in the LEFT lower extremity venous system. 2. No sonographic evidence of superficial thrombophlebitis. 3. Anechoic collection posterior to the knee measuring 3.3 x 2.4 x 2.2 cm. Rose cyst versus a small seroma are considerations. No abnormal blood flow. Electronically Signed: Doyle Herrera MD at 18:51 EDT , Treatment and Re-Evaluation :: ED attending note: I evaluated the patient in conjunction with the AURELIANO. I agree with his/her statements and above findings. I have personally performed a face to face ass essment of the patient and have reviewed the [facility] Note. I performed a substantive portion of the visit including all aspects of the following. I personally saw the patient performed chart review, physical exam, reviewed labs, imaging (if obtained), and formulated a treatment and management plan. Exam: Nursing triage notes reviewed, Vital signs reviewed Constitutional: please see mdm Extremities: Swelling noted to left lower extremity, bruising noted to the medial surface of the left leg. Intact left lower extremity pulses both dorsalis pedis and posterior tibial Neuro: Intact sensation L1-S1 dermatomal distributions. Intact 5/5 strength in hip flexion (T12-L3). Knee extension (L2-L4). Ankle dorsiflexion (L4-L5). Ankle plantar flexion (S1). Great toe extension (L5). 2+ patellar and Achilles DTRs. Skin: Left knee surgical scar clean dry intact with no purulence, erythema, crepitus or bullae. There is nonspecific redness to the medial thigh. MDM/plan: Chief Complaint: Left leg pain and swelling Obtained ultrasound showed no evidence of acute DVT. No evidence of postop infection. The patient was given wound care instructions (as discussed with orthopedic surgery on-call Dr. Sandoval) and strict return precautions with his orthopedic surgeon. I will have a discussion with the patient and or visitors regarding risk/benefits of further testing or admission. They will be made aware of of the risk/benefits inherent in this decision they will be given the opportunity to voice understanding. Consults: Orthopedic surgery Discharge Plan Triage Chief Complaint: Edema ED Midlevel Provider: Karla Anaya ED Provider: Shiraz Espinoza Dx/Rx/DC Orders Clinical Impression: Leg edema, left, Status post knee replacement Instructions: Wound Care, Knee Replace Control Swelling Prescriptions: No Action Vyvanse 40 mg capsule 40 mg PO DAILY PRN (Reason: add) Label Comments: TAKE 1 CAPSULE BY MOUTH EVERY DAY IN THE MORNING DNF 12/04/20 eszopiclone 2 MG tablet 2 mg PO QHS PRN PRN (Reason: Sleep) celecoxib 200 MG capsule 200 mg PO DAILY PRN (Reason: Pain Or Fever) oxycodone-acetaminophen 5-325 mg tablet 1 - 2 tab PO Q6H PRN (Reason: pain) 3 Days Qty: 14 0RF meclizine [Dramamine (meclizine)] 25 mg tablet 25 mg PO TID PRN (Reason: dizziness or vertigo) escitalopram oxalate [Lexapro] 10 mg tablet 10 mg PO DAILY aspirin 81 mg tablet,delayed release (DR/EC) 81 mg PO DAILY@0800 Qty: 30 11RF sildenafil [Viagra] 50 mg tablet 50 mg PO DAILY PRN (Reason: Pt aware not to take in 24 hours of nitro) Qty: 30 11RF Rx Instructions: administer 30 minutes to 4 hours before activity nitroglycerin 0.4 mg tablet, sublingual 0.4 mg sublingual Q5M PRN (Reason: chest pain) Qty: 25 3RF Rx Instructions: do not exceed 3 doses per episode: do not take within 24 hours of taking Sildenafil carvedilol [Coreg] 6.25 mg tablet 6.25 mg PO BID Qty: 180 3RF Rx Instructions: give with food (meal/snack) rosuvastatin 10 mg tablet See Rx Instructions .ROUTE .COMPLEX Qty: 90 3RF Dose Instruction: TAKE 1 TABLET BY MOUTH EVERY DAY AT BEDTIME FOR CHOLESTEROL MANAGEMENT Rx Instructions: TAKE 1 TABLET BY MOUTH EVERY DAY AT BEDTIME FOR CHOLESTEROL MANAGEMENT Primary Care Provider: Bala Becerra Referrals: Bala Becerra DO [Primary Care Provider] - 3-5 Days Activity Restrictions/Additional Instructions: Follow-up with your surgeon, return for any worsening of symptoms. Disposition Disposition: Home, Self Care Discharge Date/Time: 01/24/23 19:22
--- NOTE | 2023-01-24 17:38 | US_ITS ---
INDICATION: LT THIGH REDNESS AND SWELLING EXAMINATION: Ultrasound US Venous Duplex LE Unilat / Limited TECHNIQUE: Pope scale, pulse wave, and color flow Doppler imaging was performed of the lower extremity venous system. The LEFT greater saphenous, common femoral, femoral, and popliteal veins were interrogated. COMPARISON: 02/14/2022 FINDINGS: There is normal compression, augmentation, and signal throughout the visualized deep lower extremity veins. There is an anechoic collection posterior to the knee measuring 3.3 x 2.4 x 2.2 cm without abnormal blood flow. Rose''s cyst versus seroma are considerations. No other mass or fluid collection. US/Venous Duplex Imag/Limited/Uni IMPRESSION: 1. No sonographic evidence of deep venous thrombosis/DVT in the LEFT lower extremity venous system. 2. No sonographic evidence of superficial thrombophlebitis. 3. Anechoic collection posterior to the knee measuring 3.3 x 2.4 x 2.2 cm. Rose cyst versus a small seroma are considerations. No abnormal blood flow. Electronically Signed: Doyle Herrera MD at 18:51 EDT ,
[2023-01-24 19:04] VITALS: PULSE 89; RESP 17; O2SAT 99
[2023-01-24] MEDS: Oxycodone/Apap 5/325 Tablet PO (19:05)
== END 2023-01-24 19:22 | disposition home or self-care (01) ==
PROVIDERS: Emergency Provider Emergency Medicine; PCP Student in an Organized Health Care Education/Training Program; Visit Provider Emergency Medicine
DX: R60.0 Localized edema (principal); I48.0 Paroxysmal atrial fibrillation; M79.605 Pain in left leg; Z96.652 Presence of left artificial knee joint; I25.10 Atherosclerotic heart disease of native coronary artery without angina pectoris; I10 Essential (primary) hypertension; E78.5 Hyperlipidemia, unspecified; Z79.82 Long term (current) use of aspirin; Z79.899 Other long term (current) drug therapy; I25.2 Old myocardial infarction; Z87.891 Personal history of nicotine dependence
CPT/HCPCS: 93971; 99283

== ENCOUNTER 2023-07-10 17:30 | Outpatient (RCR) | payer BC, SELFPAY ==
--- NOTE | 2023-05-22 16:53 | HP.PTEVAL ---
Patient's Visit Information Visit Information Visit Information: CHRISTINA BHATT is a 57 year old M referred to Physical Therapy by CJ CARLOS with a diagnosis of L TKA, DOS: 01/17/23. Date of Evaluation: 05/13/23 Physical Therapist: Corey Low DPT Visit Plan Frequency: 2-3x /Week Duration: 6 Weeks Plan: Start with LE strengthening progressing to gym exercises. Progress to gym I program for quad, HS, glute strengthening Subjective Subjective: Pt. is here today for his initial evaluation with diagnosis of L TKA DOS: 01/17/23. Pt. was plan to have a partial, but once in for surgery the knee was worse off than thought and a full knee replacement was required. Pt. reports overall doing well, no restrictions, but feels like he needs to be stronger. Pt. is back to working form home and little bit at work. Pt. reports having pain and difficulty with stairs, squatting, prolonged walking. He also does not feel like he is able to complete all of his activities throughout his home and work like he wants to. Pt. denies tingling, but has some lateral Leg numbness. He did report that his L knee gave out, but did not fall, while standing the other day. Pt. is hopeful to increase his strength in order to get back to all work and gym activities without limitations. Pain L knee: Pain Intensity (Out of 10): 3 Pain Intensity Range: 0 and 5 Objective Objective: POSTURE: Pt. has overall good knee positioning. No varus or valgus positioning. PALPATION: Pt. has well healing incision, pain increase in pain with palpation. ROM: Pt. has good ROM of L knee 0-0-120deg active 0-0-122deg passively, tightness and pain at end range flexion. MMT: RLE: knee ext 75.8#, flexion 56.1#; hip: flexion: 55.4#, abd: 22.4# LLE: knee ext 25#, flexion: 27.3#; hip: flexion 19.5#, abd 16.4# GAIT: Pt. has fairly normal gait pattern, slight lateral lean during L stance phase (reverse Trendelenburg). STAIRS: Pt. has some functional weakness with controlled lowering with, loaded LLE and with pushing up with LLE. Pt. requires use of B HR to complete. Balance/Special Test Scores Lower Extremity Functional Score: 22 30 Second Chair Rise Test Seconds: 13 6 Minute Walk Test: 1203 with out Ad. Pt. reports fatigue with testing Goals Goal 1:: LTG: Pt. to be I with HEP to further increase stability and safety with all activities Goal Time Frame: 4-6 Weeks Goal 2:: LTG: Pt. to have similar L to R LE strength, with in 80% side to side. Goal Time Frame: 6-8 Weeks Goal 3:: LTG: Pt. to ambulate with good pattern without increase in L knee pain. Goal Time Frame: 4-6 Weeks Goal 4:: LTG: Pt. to negotiate 1 flight of stairs with 1 HR with reciprocal pattern and no signs of LLE functional weakness. Goal Time Frame: 6-8 Weeks Goal 5:: LTG: Pt. to ambulate 1500' with 6 MWT without increase in L knee pain. Goal Time Frame: 6-8 Weeks Rehabilitation Potential Physical Therapy Diagnosis: Pt. has signs and symptoms consistent with L TKA. Pt. has pretty good ROM, but has some marked weakness in his LLE compared to RLE. Pt. would benefit from PT to address his quad, glute medius, and HS weakness with his LLE in order to progress back to all work and recreational activities. Rehabilitation Potential: Excellent Anticipated Interventions Patient/Client Instruction: Educate patient on: Condition, Plan of Care, Risk Factors and Benefits of Fitness Program For the Purpose of:: To improve decision making, To facilitate caregiver knowledge, To improve self management, To prevent re-injury and To improve ability to perform tasks related to life management Therapeutic Exercise to Include: Strength training and Power training For the Purpose of:: To decrease pain, To increase ROM, To improve nutrient delivery to tissue, To improve muscle performance and motor function, To improve health of tissue, To decrease soft tissue restriction and To improve endurance Text: Thank you for the opportunity to evaluate your patient. For Medicare and Medicare HMO plans, please review the plan of care and approve it. It will need to be FAXED BACK to us at [phone] for Medicare purposes. For Medicare only, by signing this I certify the plan of care. Please let me know if there are questions or concerns regarding this plan of care. Physician Signature: Date:
== END 2023-07-10 19:00 | disposition home or self-care (01) ==
LOC: PT 17:30
PROVIDERS: PCP Student in an Organized Health Care Education/Training Program; Visit Provider Physician Assistant
DX: M17.12 Unilateral primary osteoarthritis, left knee (principal)
CPT/HCPCS: 97110; 97161

== ENCOUNTER 2024-11-12 21:55 | Emergency (ER) | payer BC, SELFPAY ==
[2024-11-12 21:56] VITALS: TEMP 36.7; BMI 46.2
[2024-11-12 22:11] VITALS: BP 171/90; PULSE 81; RESP 18; TEMP 36.8; O2SAT 96
--- NOTE | 2024-11-12 22:17 | CT_ITS ---
PROCEDURE: ABDOMEN/PELVIS WITHOUT CONT 11/12/2024 REASON FOR EXAM: FLANK PAIN TECHNIQUE: Abdomen and pelvis CT without intravenous contrast. Noncontrast technique limits evaluation of the abdominal and pelvic viscera. Coronal and Sagittal reconstruction series were provided. One or more dose reduction techniques were used (e.g., Automated exposure control, adjustment of the mA and/or kV according to patient size, use of iterative reconstruction technique). PATIENT PREPARATION: Per protocol ORAL CONTRAST TYPE: None. AMOUNT: mL COMPARISON: None FINDINGS: Lung bases: 3 mm right middle lobe nodule (series 2, image 5). Liver: Hepatic steatosis. No focal lesion. Gallbladder: No ductal dilation. No cholelithiasis. Spleen: No splenomegaly. Pancreas: Normal size. No surrounding inflammation. Adrenals: Unremarkable Kidneys: No urolithiasis. No hydronephrosis. Nonspecific bilateral perinephric soft tissue stranding. Bladder: Decompressed with Arceo catheter in place. Reproductive Organs: No pelvic mass. Bowel: Stomach is unremarkable. No bowel dilation or wall thickening. Colonic diverticulosis without diverticulitis. Appendix: Status post appendectomy. Lymph nodes: No suspicious lymph node enlargement. Vasculature: Mild diffuse atherosclerotic calcifications are noted. Retroaortic left renal vein. Peritoneum / Retroperitoneum: No pneumoperitoneum. No ascites. Bones: Degenerative changes of the spine. Soft tissue: Small bilateral fat containing inguinal hernias. Small fat containing umbilical hernia. CT/Abdomen/Pelvis without Cont IMPRESSION: 1. No acute findings in the abdomen and pelvis. 2. No nephrolithiasis or hydronephrosis. 3. Hepatic steatosis without focal lesion. Reading Location: [facility]
--- NOTE | 2024-11-12 22:19 | EDS_ITS ---
HPI History of Present Illness Chief Complaint: Complaint Informant: patient and spouse/S.O. Narrative Narrative: Patient is a 59-year-old male with past medical history of hypertension hyperlipidemia osteoarthritis and CAD. He states over the last 2 to 3 days he has had pain in the suprapubic region. He states that he went and saw his family doctor who performed a urine sample which showed no obvious signs of infection but a small amount of blood and there was concern for potential kidney stone. Patient states he has had a stone in the past but that caused more flank pain where this is more suprapubic pain. He states this evening he has been unable to urinate for approximately 6 hours and is having increasing pain and therefore comes in for evaluation [facility] Medical History Knee pain Nonobstructive atherosclerosis of coronary artery Obesity Essential hypertension History of non-ST elevation myocardial infarction (NSTEMI) (06/17/17) Obstructive sleep apnea HLD (hyperlipidemia) Chest discomfort Paroxysmal atrial fibrillation Home Medications ?Medication ?Instructions ?Recorded ?Last Taken ?Type celecoxib 200 mg capsule 200 mg PO DAILY PRN Pain Or Fever 08/21/19 Unknown History eszopiclone 2 mg tablet 2 mg PO QHS PRN PRN Sleep Unknown History lisdexamfetamine 40 mg capsule 40 mg PO DAILY PRN add 02/07/21 Unknown History (Vyvanse) aspirin 81 mg tablet,delayed 81 mg PO DAILY@0800 #30 t abs 01/16/22 Unknown Rx release oxycodone-acetaminophen 5 mg-325 1 - 2 tab PO Q6H PRN pain 3 days 02/18/22 Unknown Rx mg tablet #14 tabs escitalopram oxalate 10 mg tablet 10 mg PO DAILY 02/19 Unknown History (Lexapro) meclizine 25 mg tablet (Dramamine 25 mg PO TID PRN diz ziness or 02/19/22 Unknown History (meclizine)) vertigo carvedilol 6.25 mg tablet (Coreg) 6.25 mg PO BID #180 tabs 07/12/22 Unknown Rx nitroglycerin 0.4 mg sublingual 0.4 mg sublingual Q5M PRN chest 07/12/22 Unknown Rx tablet pain #25 tabs sildenafil 50 mg tablet (Viagra) 50 mg PO DAILY PRN Pt aware not to 07/12/22 Unknown Rx take in 24 hours of nitro #30 tabs rosuvastatin 10 mg tablet See Rx Instructions .Route 0 01/06/24 Unknown Rx .COMPLEX #90 tabs ciprofloxacin HCl 500 mg tablet 500 mg PO BID 14 days #28 tabs 11/13/24 Unknown Rx (Cipro) Allergy/AdvReac Type Severity Reaction Status Date / Time No Known Allergies Allergy Verified 02/23/22 09:27 Family History Mother Crohn disease Grandmother Diabetes Surgical History History of appendectomy History of left heart catheterization (06/17/17) Knee joint replacement status Social History Smoking Status: Never smoker how long ago did patient quit smokin alcohol intake: never substance use type: does not use caffeine: Yes Type: coffee what type of physical activity do you participate in: none seatbelt use: always do you feel safe at home: Yes ROS ROS ED Constitutional Constitutional ED: Denies chills or fever(s) ENT ENT ED: Denies sore throat Cardiovascular Cardiovascular: Denies chest pain Respiratory/Chest Respiratory/Chest: Denies cough or dyspnea Gastrointestinal Gastrointestinal: Reports abdominal pain; Denies diarrhea, nausea or vomiting Genitourinary Genitourinary ED: Reports hematuria, urinary frequency and other Details: Positive incomplete voiding ; Denies dysuria Musculoskeletal Musculoskeletal: Denies back pain Integumentary Denies rash Neurologic Neurologic: Denies headache(s) Hematologic/Lymphatic Hematologic/Lymphatic: Denies easy bleeding or easy bruising EXAM Physical Exam Const Vital Signs: 11/12/24 21:56 11/12/24 22:11 11/12/24 23:00 Temperature 98.1 F 98.2 F Temperature Source Temporal Oral Pulse Rate 81 72 Respiratory Rate 18 20 H Blood Pressure 171/90 H 151/51 H Blood Pressure Mean 117 84 Pulse Ox 96 95 Oxygen Delivery Method Room Air 11/13/24 00:00 Temperature Temperature Source Pulse Rate 78 Respiratory Rate 24 H Blood Pressure 151/51 H Blood Pressure Mean 84 Pulse Ox 97 Oxygen Delivery Method Room Air Positive well nourished, well developed and obese General Appearance ED: well developed; Negative for pallor Nutritional Appearance: obese HEENT HEENT Narrative: Normocephalic atraumatic Eyes PERRL and EOMs intact bilaterally General Eye ED: Negative for scleral icterus Neck supple Resp normal respiratory effort and clear to auscultation bilaterally Cardio regular rate and regular rhythm Rate: other Other Details: Radial and carotid pulses are equal and symmetric GI non-distended GI Narrative: Abdomen is soft and nondistended with normal active bowel sounds. There is pain on palpation in the suprapubic region. There is mild organomegaly at the site consistent with a distended bladder. Otherwise there is no voluntary guarding or rigidity or pulsatile mass. Auscultation: normoactive bowel sounds Palpation: soft Narrative: Normal circumcised male without blood or discharge at the urethral meatus. No testicular swelling or masses no abnormal lie to the testicles or pain with palpation. No obvious hernia. No surrounding soft tissue skin changes to suggest Ayana's gangrene. Back/Spine no CVA tenderness Extremity normal to inspection Neuro oriented x3, CN's II-XII intact bilaterally and no sensory deficits noted Sensorium / Orientation: alert Motor Exam: strength 5/5 throughout Psych mental status grossly normal Skin no rashes or lesions noted and no wounds General Skin Exam: Negative for jaundice or pallor MDM MDM MDM Narrative Medical decision making narrative: Patient arrived to ER hypertensive but otherwise with stable vitals. He reported over the past 6 hours or so he has had a sensation to urinate but has been unable to do so. His symptoms and history is concerning for acute urinary retention versus kidney stone versus UTI versus pyelonephritis versus BRYON. Secondary to his basic labs with a urine sample were obtained. Patient's white count is elevated at 14.5 otherwise he has no signs of acute kidney injury and his urine sample shows no signs of bacteria. CT scan revealed mild nonspecific fat stranding of the kidneys but showed no sign of kidney stone or hydronephrosis. As the urine sample does not show any bacteria I do not feel the fat stranding is related to pyelonephritis/infection but more so due to the fact that the patient was unable to urinate for the last 6 or so hours. After having a Arceo catheter in place and his bladder decompressed he did report feeling better and his vitals improved. At this time he does have a leukocyto sis which could be potential infection or stress response but he is afebrile he is normotensive he does not have BRYON or obvious signs of infection by urine sample or imaging study. He did report that he recently started Ozempic and was constipated so he gave himself an enema prior to all of the symptoms starting. Therefore there is concern that the patient cause prostate irritation or infection causing compression of the urethra and his symptoms. Secondary to this I will start him on ciprofloxacin. The Arceo catheter will be left in place and he will follow-up with urology to discuss further workup. This plan of care was discussed with patient and family and they are agreeable to it History & Record Review Discussion w/independent historian: Patient and Significant other Lab Data Attestation: I reviewed the patient's lab results. Labs: Laboratory Results - last 24 hr 11/12/24 11/12/24 22:09 22:50 WBC 14.5 H RBC 4.88 Hgb 13.7 Hct 41.1 MCV 84.2 MCH 28.1 MCHC 33.3 RDW Std Deviation 42.5 RDW Coeff of Bruce 13.9 Plt Count 152 MPV 10.9 Immature Gran % (Auto) 0.400 Neut % (Auto) 80.3 H Lymph % (Auto) 9.7 L [place] % (Auto) 8.4 Eos % (Auto) 0.6 Baso % (Auto) 0.6 Absolute Neuts (auto) 11.6 H Absolute Lymphs (auto) 1.40 Nucleated RBC % 0 Sodium 138 Potassium 4.1 Chloride 104 Carbon Dioxide 20.9 L Anion Gap 13 BUN 21 H Creatinine 0.99 Estim Creat Clear Calc 137.21 Est GFR (MDRD) Non-Af 89 BUN/Creatinine Ratio 21.1 H Glucose 102 H Calcium 9.4 Urine Color Yellow Urine Clarity Clear Urine pH 6.0 Ur Specific [place] 1.015 Urine Protein 15 H Urine Glucose (UA) Normal Urine Ketones Negative Urine Occult Blood 10 H Urine Nitrite Negative Urine Bilirubin Negative Urine Urobilinogen Normal Ur Leukocyte Esterase Negative Urine RBC 0 SEEN Urine WBC 0 SEEN Ur Squamous Epith Cells 0 SEEN Urine Bacteria 0 SEEN Urine Mucus 0 SEEN Radiography Diagnostic Testing: Clinical Impression(s) from Imaging Studies Abdomen/Pelvis CT 11/12/24 22:17 IMPRESSION: 1. No acute findings in the abdomen and pelvis. 2. No nephrolithiasis or hydronephrosis. 3. Hepatic steatosis without focal lesion. Reading Location: [facility] Discharge Plan Triage Chief Complaint: Complaint ED Provider: Jb Case Dx/Rx/DC Orders Clinical Impression: Acute urinary retention, Essential hypertension, HLD (hyperlipidemia) Instructions: ED Arceo Catheter, Care, ED Prostatitis, ED Urinary Retention, Male Prescriptions: New ciprofloxacin HCl [Cipro] 500 mg tablet 500 mg PO BID 14 Days Qty: 28 0RF No Action Vyvanse 40 mg capsule 40 mg PO DAILY PRN (Reason: add) Patient Comments: TAKE 1 CAPSULE BY MOUTH EVERY DAY IN THE MORNING DNF 12/04/20 eszopiclone 2 MG tablet 2 mg PO QHS PRN PRN (Reason: Sleep) celecoxib 200 MG capsule 200 mg PO DAILY PRN (Reason: Pain Or Fever) oxycodone-acetaminophen 5-325 mg tablet 1 - 2 tab PO Q6H PRN (Reason: pain) 3 Days Qty: 14 0RF meclizine [Dramamine (meclizine)] 25 mg tablet 25 mg PO TID PRN (Reason: dizziness or vertigo) escitalopram oxalate [Lexapro] 10 mg tablet 10 mg PO DAILY aspirin 81 mg tablet,delayed release (DR/EC) 81 mg PO DAILY@0800 Qty: 30 11RF sildenafil [Viagra] 50 mg tablet 50 mg PO DAILY PRN (Reason: Pt aware not to take in 24 hours of nitro) Qty: 30 11RF Rx Instructions: administer 30 minutes to 4 hours before activity nitroglycerin 0.4 mg tablet, sublingual 0.4 mg sublingual Q5M PRN (Reason: chest pain) Qty: 25 3RF Rx Instructions: do not exceed 3 doses per episode: do not take within 24 hours of taking Sildenafil carvedilol [Coreg] 6.25 mg tablet 6.25 mg PO BID Qty: 180 3RF Rx Instructions: give with food (meal/snack) rosuvastatin 10 mg tablet See Rx Instructions .ROUTE .COMPLEX Qty: 90 3RF Dose Instruction: TAKE 1 TABLET BY MOUTH EVERY DAY AT BEDTIME FOR CHOLESTEROL MANAGEMENT Rx Instructions: TAKE 1 TABLET BY MOUTH EVERY DAY AT BEDTIME FOR CHOLESTEROL MANAGEMENT Primary Care Provider: Bala Becerra Referrals: Drew Weston MD [Med Staff - Active Staff] - (Urinary retention) Bala Becerra DO [Primary Care Provider] - Activity Restrictions/Additional Instructions: Please follow-up with urology for repeat evaluation. As there is concern that your urinary retention was caused by an inflamed or infected prostate take the ciprofloxacin as directed to resolve any potential infectious process. If you have any further concerns or worsening symptoms please return to the ER for repeat evaluation Print Language: Malay Disposition Disposition: Home, Self Care
[2024-11-12] MEDS: Lidocaine Jelly 2% 20 ML Syringe (URO-JET) 1 APPLIC TOPICAL (22:26)
[2024-11-12] MEDS: Morphine 4 MG/ML Syringe IV (22:28)
[2024-11-12] MEDS: 0.9% Normal Saline (1000mL) 1,000 ML 999 ML IV (22:28)
[2024-11-12 22:29] LABS: Absolute Neutrophil Count 11.6 X10^3/uL (2.0-7.7); Basophil# 0.09 X10^3/uL; Basophil% 0.6 % (0-1); Eosinophil# 0.08 X10^3/uL; Eosinophils% 0.6 % (0-5); Hematocrit 41.1 % (40-54); Hemoglobin 13.7 g/dL (13.0-16.5); Lymphocyte % 9.7 % (19-41); Mean Corp Hgb Conc 33.3 g/dL (32-36); Mean Corpuscular Hgb 28.1 pg (27.0-32.0); Mean Corpuscular Volume 84.2 fL (80-94); Mean Platelet Vol. 10.9 fl (6.2-12.0); Monocyte# 1.21 X10^3/uL; Monocyte% 8.4 % (0-10); NRBC Flagged by Analyzer 0 % (0-5); Neutrophil # 11.64 X10^3/uL (2.7-7.7); Neutrophil % 80.3 % (47-70); Platelet Count 152 K/mm3 (150-450); RBC Distribution Width CV 13.9 % (11.6-14.6); RBC Distribution Width SD 42.5 fl (35.1-43.9); Red Blood Count 4.88 M/mm3 (4.6-6.2); White Blood Count 14.5 K/mm3 (4.4-11.0)
[2024-11-12] MEDS: Ondansetron 4 MG/2 ML Vial IV (22:29)
[2024-11-12 22:54] LABS: Bacteria 0 SEEN /hpf (None Seen); Mucous, Urine 0 SEEN /hpf (<or=2+); Red Blood Cells-Urine 0 SEEN /hpf (0-5); Squamous Epithelial Cells - UA 0 SEEN /hpf (0-5); White Blood Cells 0 SEEN /hpf (0-5)
[2024-11-12 22:58] LABS: Color, Urine Yellow (Yellow); Glucose, Dipstick Normal (Normal); Ketone-Dipstick Negative (Negative); Leukocyte Esterase-Dipstick Negative /ul (Negative); Nitrite-Dipstick Negative (Negative); Occult Blood-Urine 10 /ul (Negative); Protein-Dipstick 15 mg/dl (Negative); Specific Gravity, Urine 1.015 (1.002-1.030); Urine Bilirubin Dipstick Negative (Negative); Urine Clarity Clear (Clear); Urine Urobilinogen Normal (Normal)
[2024-11-12 22:59] LABS: Anion Gap 13 (5-15); BUN 21 mg/dL (4-19); BUN/Creat Ratio 21.1 RATIO (10-20); Calcium,Total 9.4 mg/dL (7.6-11.0); Carbon Dioxide 20.9 mmol/L (21.0-32.0); Chloride 104 mmol/L (98-108); Creatinine, Serum 0.99 mg/dL (0.70-1.20); EST Glomerular Filtration Rate 89 (>60); Estimated Creatinine Clearance 137.21 ml/min (50-250); Glucose 102 mg/dL (70-99); Potassium 4.1 mmol/L (3.3-5.1); Sodium Level 138 mmol/L (133-145)
[2024-11-12 23:00] VITALS: BP 151/51; PULSE 72; RESP 20; O2SAT 95
[2024-11-12] MEDS: HYDROmorphone 1 MG/ML Syringe IV (23:07)
[2024-11-13] VITALS: BP 151/51; PULSE 78; RESP 24; O2SAT 97
[2024-11-13] MEDS: Ciprofloxacin 500 MG Tablet PO (00:44)
[2024-11-13 01:19] VITALS: BP 135/59; PULSE 68; RESP 22; TEMP 36.6; O2SAT 95
== END 2024-11-13 01:19 | disposition home or self-care (01) ==
PROVIDERS: Emergency Provider Emergency Medicine; PCP Student in an Organized Health Care Education/Training Program; Visit Provider Emergency Medicine
DX: R33.9 Retention of urine, unspecified (principal); Z68.42 Body mass index [BMI] 45.0-49.9, adult; I25.10 Atherosclerotic heart disease of native coronary artery without angina pectoris; I10 Essential (primary) hypertension; I25.2 Old myocardial infarction; E78.5 Hyperlipidemia, unspecified; E66.9 Obesity, unspecified; Z79.82 Long term (current) use of aspirin; Z79.899 Other long term (current) drug therapy
CPT/HCPCS: 51702; 74176; 80048; 81001; 85025; 96361; 96374; 96375; 99283; A4216; J2405